=== PATIENT | female | born 1940 | race Caucasian/White ===

== ENCOUNTER 2020-11-22 08:56 | Emergency (ER) | payer MEDICARE, BC, SELFPAY ==
--- NOTE | ~2020-11-22 | CT_ITS ---
EXAMINATION: CT ABDOMEN AND PELVIS WITHOUT CONTRAST CLINICAL INFORMATION: Right flank pain. Rule out pyelonephritis COMPARISON: None TECHNIQUE: Multidetector volumetric imaging was performed from the superior aspect of the liver through the pubic symphysis. Sagittal and coronal reformatted images were obtained on the technologist's workstation. This CT examination was performed using dose optimization techniques as appropriate, variously including the following: *Automated exposure control *Adjustment of mA and/or kV according to patient size (this includes techniques or standardized protocols for targeted exams where dose is matched to indication/reason for exam; i.e. extremities or head) *Use of iterative reconstruction technique DLP: 681 mGy-cm FINDINGS: LUNG BASES: There is plate like atelectasis in the lingula. The lung bases are clear. Heart size is normal. There is aortic valve calcification. No pericardial effusion seen. LIVER, GALLBLADDER, AND BILIARY TREE: The liver is normal in size, shape, and attenuation. No focal hepatic lesion or biliary ductal dilatation is present. The gallbladder is unremarkable with no evidence of radiopaque gallstones, gallbladder wall thickening, or obvious pericholecystic inflammatory changes. PANCREAS: There is a subtle hypodensity in the head of the pancreas with minimal fat stranding, suspicious for early pancreatitis. The body and the tail of the pancreas is normal size and density. SPLEEN: Unremarkable. ADRENAL GLANDS: Unremarkable. KIDNEYS AND URETERS: The kidneys are normal in size, shape, and attenuation. No hydronephrosis, hydroureter, or calculi seen. No perinephric stranding. BLADDER: Unremarkable. GASTROINTESTINAL TRACT: There is scattered stool and gas seen throughout the colon without any significant distention. There is diffuse colonic diverticulosis without diverticulitis. The small bowel loops are normal caliber. Appendix is not well visualized. There are small lymph nodes adjacent to the terminal ileum measuring 1.1 cm. Small calcified phlebolith seen adjacent to the ascending colon. The stomach is nondistended and appears unremarkable. ABDOMINAL WALL: No significant hernia is appreciated. LYMPH NODES: Normal. VASCULAR: There is atherosclerotic calcification of abdominal aorta without aneurysmal dilatation PELVIC VISCERA: There are several scattered phleboliths in the pelvis. No free air or free fluid seen. OSSEOUS STRUCTURES: There is a right hip prosthesis with beam hardening artifact in the lower pelvis. No lytic or sclerotic process seen. There are degenerative disc changes throughout lumbar spine sparing the L5-S1 disc level. CT/CT abdomen pelvis wo con IMPRESSION: Diffuse colonic diverticulosis without diverticulitis. Mild constipation without obstruction. No radiopaque renal calculi or hydronephrosis seen. Cannot exclude pyelonephritis on this noncontrast CT exam.
--- NOTE | 2020-11-22 09:08 | ECG_ITS ---
Test Reason : R FLANK PAIN Blood Pressure : / mmHG Vent. Rate : 091 BPM Atrial Rate : 091 BPM P-R Int : 184 ms QRS Dur : 070 ms QT Int : 366 ms P-R-T Axes : 030 013 039 degrees QTc Int : 450 ms Normal sinus rhythm Normal ECG When compared with ECG of 31-MAY-2017 04:16, No significant change was found Referred By: Madhuri Osborn Electronically Signed By:ARNAUD STORY
[2020-11-22 09:09] VITALS: BP 162/87; PULSE 88; RESP 18; TEMP 36.7; O2SAT 98; BMI 28.3
--- NOTE | 2020-11-22 09:14 | ED_ITS ---
HPI - Back Pain/Injury General Chief Complaint: Abdominal Pain Stated Complaint: R FLANK PAIN FOR 1 WEEK Time Seen by Provider: 11/22/20 09:00 Source: patient Mode of arrival: ambulatory Limitations: no limitations History of Present Illness HPI Narrative: 80 yo female with past medical history of breast cancer s/p lumpectomy (not currently on oral chemo), HLD here with complaints of right mid back pain x several weeks. No radiation of pain. No numbness/tingling. No fevers/chills. No urinary symptoms/nausea/vomiting/diarrhea/rash. Using OTC APAP, voltaren cream and lidoderm patches with continued pain. MD elicited complaint: back pain Related Data Previous Rx's Medication Instructions Recorded cefpodoxime 100 mg PO BID #14 tab 11/22/20 cyclobenzaprine 10 mg PO TID PRN #10 tab 11/22/20 lidocaine [Lidoderm] 1 patch TOPICAL DAILY #15 ea 11/22/20 Allergies Allergy/AdvReac Type Severity Reaction Status Date / Time No Known Allergies Allergy Unverified 06/10/20 19:17 [No Known Allergies*] Review of Systems Review of Systems: Yes all other systems are reviewed and are negative Constitutional: Constitutional: Reports no additional constitutional complaints, Denies body ache(s), Denies chills, Denies fever(s), Denies headache(s) and Denies weakness Eyes: Eyes: Reports no additional eye complaints and Denies change in vision ENT: Reports system reviewed and no additional complaints, except as documented, Denies dizziness, Denies headache(s), Denies nasal congestion, Denies nasal discharge and Denies neck pain Cardiovascular: Cardiovascular: Reports no additional cardiovascular complaints, Denies chest pain, Denies leg edema and Denies dyspnea Respiratory: Respiratory: Reports no additional respiratory complaints, Denies cough and Denies dyspnea Gastrointestinal: Gastrointestinal: Reports no additional gastrointestinal complaints, Denies abdominal pain, Denies diarrhea, Denies nausea and Denies vomiting Genitourinary: Genitourinary: Reports no additional female genitourinary complaints and Denies urinary incontinence Musculoskeletal: Musculoskeletal: Reports no additional musculoskeletal complaints, Reports back pain, Denies arthralgias, Denies joint swelling, Denies neck pain, Denies numbness and Denies tingling Integumentary/Breasts: Skin/Breast: Reports system reviewed and no additional complaints, except as docu and Denies rash Neurologic: Reports system reviewed and no additional complaints, except as documented, Denies Abnormal speech present, Denies dizziness, Denies headache(s), Denies numbness, Denies tingling and Denies weakness PMFSH Past Medical History Attestation statement: The following information was validated with the patient. Source: old records reviewed and nursing notes reviewed Medical History (Updated 11/22/20 @ 12:41 by Madhuri Osborn NP) Breast cancer Hyperlipemia Surgical History History of right knee joint replacement Social History Social History Advance Directives: Yes Advance Directives Information Provided: No Advance Directives on File: No Physical Exam Vital Signs: Vital Signs: Last Vital Signs Temp 98.0 F 11/22/20 09:09 Pulse 67 11/22/20 13:34 Resp 16 11/22/20 13:34 BP 140/83 H 11/22/20 13:34 Pulse Ox 97 11/22/20 13:34 Body Mass Index 28.3 Const: General: cooperative, healthy appearing, comfortable and no acute distress Orientation/consciousness: patient oriented x3 Limitations: no limitations HENMT: Head: Yes normal to inspection Ears: hearing grossly normal bilaterally General nose exam: Normal external nose present Face and sinus: Yes normal facial exam Mouth: Normal oral and palatal mucosa present Throat: Yes posterior oropharynx normal Eyes: General: appearance normal, both eyes and all related structures Pupils: Equal, round and reactive pupils present Neck: Neck: Yes normal visual inspection Chest: Chest palpation & inspection: normal inspection of the chest Resp: Effort & Inspection: normal respiratory effort Auscultation: clear to auscultation bilaterally Cardio: Rate: regular rate Rhythm: regular rhythm Peripheral pulses: Peripheral pulses 2+ throughout GI: Inspection: Yes normal to inspection Palpation (GI): Soft to palpation and nontender Auscultation: normal bowel sounds : General: Yes CVA tenderness (mild/mod right ) Back/Spine/Pelvis: Back: CVA tenderness (mild/mod right ) Thoracic/Lumbar Spine: thoracic and lumbar spine normal to inspection Skin: General skin exam: no rashes or lesions noted Neuro: General: patient oriented x3, no focal motor deficits and normal sensation to monofilament Cranial nerves: Yes Equal, round and reactive pupils present Cognition (Neuro): normal cognition Speech: No Abnormal speech present Gait exam (Neuro): Normal gait present Motor exam (neuro): 5/5 motor strength present throughout Extrem: General: Yes normal to inspection Course Course Course Narrative: 80 yo female with past medical history of breast cancer s/p lumpectomy, HLD here with right mid back pain x several weeks. On exam has right CVAT and RUQ abdominal pain. Will need labs, UA, EKG, imaging, provide analgesia. 1250-labs are unremarkable including renal function and LFTs. UA is consistent with UTI. EKG and troponin are negative. CT shows no findings of renal colic o r pyelonephritis. Patient is feeling improved after receiving some analgesia. Will treat with antibiotics for UTI. I discussed with the patient she may have early pyelonephritis however less likely with no leukocytosis, no fever, no evidence of pyelonephritis on CT. May also have lumbar strain. We discussed supportive care at home in addition to the antibiotics. Reviewed following up with primary care doctor in 48 hours if no improvement in symptoms. Reviewed worrisome signs and symptoms of when to return to the emergency department. Comfortable discharge home. MDM - Back Pain/Injury MDM Narrative Medical decision making narrative: ACS, pe, pyelo/renal colic, lumbar strain, acute ernie Less likely ACS with symptoms for greater than 2 weeks, atypical in nature, negative troponin and EKG with no ischemic changes. Less likely PE with no tachycardia, no hypoxia or complaints of shortness of breath or chest pain and no clinical findings of a DVT. Less likely acute ernie with NO RUQ abdominal pain, CT not concerning for same and normal LFTs Medical Records Attestation: I reviewed the patient's medical records. Lab Data Attestation: I reviewed the patient's lab results. Result diagrams: 11/22/20 09:45 11/22/20 09:45 Labs: Lab Results 11/22/20 11/22/20 11/22/20 Range/Units 09:45 09:45 09:45 WBC 6.2 (4.8-10.8) X10*3/uL RBC 5.28 (4.20-5.50) X10*6/uL Hgb 14.8 (12.0-16.0) g/dl Hct 47.3 H (37-47) % MCV 89.6 (80-98) fL MCH 28.0 (27.0-33.0) pg MCHC 31.3 (31.0-35.0) g/dl RDW 15.5 (11.0-16.0) % Plt Count 239 (160-400) X10*3/uL MPV 10.8 (9.4-12.3) fL Immature Gran % (Auto) 0.3 (0.0-0.4) % Neut % (Auto) 73.9 H (45-73) % Lymph % (Auto) 17.8 L (20-40) % [place]ccre[place] % (Auto) 5.8 (2-11) % Eos % (Auto) 1.6 (0-4) % Baso % (Auto) 0.6 (0-2) % Lymph # (Auto) 1.1 L (1.2-4.9) X10*3/uL [place] # (Auto) 0.4 (0.1-1.2) X10*3/uL Eos # (Auto) 0.1 (0.0-0.4) X10*3/uL Baso # (Auto) 0.0 (0.0-0.2) X10*3/uL Abs Immat Gran (auto) 0.02 (0.00-0.03) X10*3/uL Absolute Neuts (auto) 4.6 (2.0-8.3) X10*3/uL Absolute Nucleated RBC 0.000 (0.0-0.012) X10*3/uL Nucleated RBC % (auto) 0.0 (0.0-0.2) /100WBC PT (10.8-13.0) SEC INR (0.9-1.1) Sodium 143 (135-145) mmol/L Potassium 4.8 (3.3-5.1) mmol/L Chloride 105 (96-108) mmol/L Carbon Dioxide 29 (22-29) mmol/L Anion Gap 14 (12-20) BUN 24 H (9-16) mg/dL Creatinine 0.96 (0.5-1.4) mg/dL Estim Creat Clear Calc 43.1 Estimated GFR 56 Random Glucose 105 (60-115) mg/dL Calcium 9.6 (8.4-10.2) mg/dL Magnesium 2.2 (1.6-2.6) mg/dL Total Bilirubin 0.6 (0.0-1.0) mg/dL Direct Bilirubin 0.2 (0.0-0.5) mg/dL AST 23 (5-31) U/L ALT 25 (0-31) U/L Alkaline Phosphatase 84 (39-117) U/L Troponin I High Sens 3.5 (<3.5-17.0) ng/L Total Protein 7.3 (6.5-8.0) g/dL Albumin 4.6 (3.5-5.0) g/dL Urine Color Urine Appearance Urine pH (5.0-8.0) Ur Specific [place] (1.005-1.025) Urine Protein (NEG-TRACE) MG/DL Urine Glucose (UA) (NEG) MG/DL Urine Ketones (NEG) MG/DL Urine Blood (NEG) Urine Nitrite (NEG) Ur Leukocyte Esterase (NEG) Urine RBC (0) /HPF Urine WBC (0-4) /HPF Ur Squamous Epith Cells /LPF Urine Bacteria /LPF 11/22/20 11/22/20 Range/Units 09:45 09:45 WBC (4.8-10.8) X10*3/uL RBC (4.20-5.50) X10*6/uL Hgb (12.0-16.0) g/dl Hct (37-47) % MCV (80-98) fL MCH (27.0-33.0) pg MCHC (31.0-35.0) g/dl RDW (11.0-16.0) % Plt Count (160-400) X10*3/uL MPV (9.4-12.3) fL Immature Gran % (Auto) (0.0-0.4) % Neut % (Auto) (45-73) % Lymph % (Auto) (20-40) % [place] % (Auto) (2-11) % Eos % (Auto) (0-4) % Baso % (Auto) (0-2) % Lymph # (Auto) (1.2-4.9) X10*3/uL [place] # (Auto) (0.1-1.2) X10*3/uL Eos # (Auto) (0.0-0.4) X10*3/uL Baso # (Auto) (0.0-0.2) X10*3/uL Abs Immat Gran (auto) (0.00-0.03) X10*3/uL Absolute Neuts (auto) (2.0-8.3) X10*3/uL Absolute Nucleated RBC (0.0-0.012) X10*3/uL Nucleated RBC % (auto) (0.0-0.2) /100WBC PT 11.6 (10.8-13.0) SEC INR 1.0 (0.9-1.1) Sodium (135-145) mmol/L Potassium (3.3-5.1) mmol/L Chloride (96-108) mmol/L Carbon Dioxide (22-29) mmol/L Anion Gap (12-20) BUN (9-16) mg/dL Creatinine (0.5-1.4) mg/dL Estim Creat Clear Calc Estimated GFR Random Glucose (60-115) mg/dL Calcium (8.4-10.2) mg/dL Magnesium (1.6-2.6) mg/dL Total Bilirubin (0.0-1.0) mg/dL Direct Bilirubin (0.0-0.5) mg/dL AST (5-31) U/L ALT (0-31) U/L Alkaline Phosphatase (39-117) U/L Troponin I High Sens (<3.5-17.0) ng/L Total Protein (6.5-8.0) g/dL Albumin (3.5-5.0) g/dL Urine Color YELLOW Urine Appearance HAZY Urine pH 7.5 (5.0-8.0) Ur Specific [place] 1.020 (1.005-1.025) Urine Protein NEG (NEG-TRACE) MG/DL Urine Glucose (UA) NEG (NEG) MG/DL Urine Ketones NEG (NEG) MG/DL Urine Blood NEG (NEG) Urine Nitrite NEG (NEG) Ur Leukocyte Esterase 2+ H (NEG) Urine RBC 0-2 (0) /HPF Urine WBC 15-29 H (0-4) /HPF Ur Squamous Epith Cells 3+ /LPF Urine Bacteria TRACE /LPF Imaging Data CT scan - abdomen: Attestation: I personally reviewed and interpreted this imaging study as follows: Radiologist's impression: EXAMINATION: CT ABDOMEN AND PELVIS WITHOUT CONTRAST CLINICAL INFORMATION: Right flank pain. Rule out pyelonephritis COMPARISON: None TECHNIQUE: Multidetector volumetric imaging was performed from the superior aspect of the liver through the pubic symphysis. Sagittal and coronal reformatted images were obtained on the technologist's workstation. This CT examination was performed using dose optimization techniques as appropriate, variously including the following: *Automated exposure control *Adjustment of mA and/or kV according to patient size (this includes techniques or standardized protocols for targeted exams where dose is matched to indication/reason for exam; i.e. extremities or head) *Use of iterative reconstruction technique DLP: 681 mGy-cm FINDINGS: LUNG BASES: There is plate like atelectasis in the lingula. The lung bases are clear. Heart size is normal. There is aortic valve calcification. No pericardial effusion seen. LIVER, GALLBLADDER, AND BILIARY TREE: The liver is normal in size, shape, and attenuation. No focal hepatic lesion or biliary ductal dilatation is present. The gallbladder is unremarkable with no evidence of radiopaque gallstones, gallbladder wall thickening, or obvious pericholecystic inflammatory changes. PANCREAS: There is a subtle hypodensity in the head of the pancreas with minimal fat stranding, suspicious for early pancreatitis. The body and the tail of the pancreas is normal size and density. SPLEEN: Unremarkable. ADRENAL GLANDS: Unremarkable. KIDNEYS AND URETERS: The kidneys are normal in size, shape, and attenuation. No hydronephrosis, hydroureter, or calculi seen. No perinephric stranding. BLADDER: Unremarkable. GASTROINTESTINAL TRACT: There is scattered stool and gas seen throughout the colon without any significant distention. There is diffuse colonic diverticulosis without diverticulitis. The small bowel loops are normal caliber. Appendix is not well visualized. There are small lymph nodes adjacent to the terminal ileum measuring 1.1 cm. Small calcified phlebolith seen adjacent to the ascending colon. The stomach is nondistended and appears unremarkable. ABDOMINAL WALL: No significant hernia is appreciated. LYMPH NODES: Normal. VASCULAR: There is atherosclerotic calcification of abdominal aorta without aneurysmal dilatation PELVIC VISCERA: There are several scattered phleboliths in the pelvis. No free air or free fluid seen. OSSEOUS STRUCTURES: There is a right hip prosthesis with beam hardening artifact in the lower pelvis. No lytic or sclerotic process seen. There are degenerative disc changes throughout lumbar spine sparing the L5-S1 disc level. CT/CT abdomen pelvis wo con IMPRESSION: Diffuse colonic diverticulosis without diverticulitis. Mild constipation without obstruction. No radiopaque renal calculi or hydronephrosis seen. Cannot exclude pyelonephritis on this noncontrast CT exam. ECG Data Attestation: I personally reviewed and interpreted this ECG as follows: Interpretation: NSR rate 91, normal pr, normal qrs, normal qt Discharge Plan Discharge Clinical Impression: Lumbar sprain UTI (urinary tract infection) Qualifiers: Urinary tract infection type: acute cystitis Hematuria presence: without hematuria Qualified Code(s): N30.00 - Acute cystitis without hematuria Patient Disposition: Home, Self-Care Instructions: Low Back Strain (ED), Urinary Tract Infection in Older Adults (ED) Additional Instructions: Heat to the area with the patch is not in place Increase fluids, rest If no improvement in symptoms by Sunday follow-up with your primary care doctor Prescriptions: New lidocaine [Lidoderm] 5 % adhesive patch,medicated 1 patch topical DAILY Qty: 15 RF: 0 cyclobenzaprine 10 mg tablet 10 mg PO TID PRN (Reason: muscle spasm) Qty: 10 RF: 0 cefpodoxime 100 mg tablet 100 mg PO BID Qty: 14 RF: 0 Referrals: Simeon Solitario DO, MD [Primary Care Provider] - 2 days (if no better) Interventions: ED Discharge Assessment Last Done: 11/22/20 13:35 Discharge Date/Time: 11/22/20 13:52
[2020-11-22] MEDS: ondansetron HCL 4 MG/2 ML VIAL IVPUSH (09:42)
[2020-11-22 09:54] LABS: MANUAL DIFF FLAG NO
[2020-11-22 09:56] LABS: Basophils Percent Auto 0.6 % (0-2); Eosinophils Absolute Auto 0.1 X10*3/uL (0.0-0.4); Eosinophils Percent Auto 1.6 % (0-4); Hematocrit 47.3 % (37-47); Hemoglobin 14.8 g/dl (12.0-16.0); Imm Gran Abs Auto 0.02 X10*3/uL (0.00-0.03); Imm Gran Pct Auto 0.3 % (0.0-0.4); Lymphocytes Absolute Auto 1.1 X10*3/uL (1.2-4.9); Lymphocytes Percent Auto 17.8 % (20-40); Mean Corpuscular HGB Conc 31.3 g/dl (31.0-35.0); Mean Corpuscular Volume 89.6 fL (80-98); Mean Platelet Volume 10.8 fL (9.4-12.3); Monocytes Absolute Auto 0.4 X10*3/uL (0.1-1.2); Monocytes Percent Auto 5.8 % (2-11); Neutrophils Absolute Auto 4.6 X10*3/uL (2.0-8.3); Neutrophils Percent Auto 73.9 % (45-73); Platelet Count 239 X10*3/uL (160-400); Red Blood Count 5.28 X10*6/uL (4.20-5.50); Red Cell Distribution Width 15.5 % (11.0-16.0); White Blood Count 6.2 X10*3/uL (4.8-10.8)
[2020-11-22 10:00] LABS: Glucose Urine UA NEG (NEG); Leukocyte Esterase Urine 2+ (NEG); Nitrite Urine NEG (NEG); PH 7.5 (5.0-8.0); UACC Culture Trigger YES; Urine Blood NEG (NEG); Urine Ketones NEG (NEG); Urine Protein NEG (NEG-TRACE)
[2020-11-22 10:03] LABS: Appearance Urine HAZY; Color Urine YELLOW
[2020-11-22 10:04] LABS: Prothrombin Time 11.6 SEC (10.8-13.0)
[2020-11-22 10:09] LABS: Bacteria Urine TRACE /LPF; RBC Urine 0-2 /HPF (0); Squamous Epithelial Cell Urine 3+ /LPF
[2020-11-22] MEDS: Lidocaine 4 % Patch ADH..PATCH 1 PATCH TRANSDERMA (10:27)
[2020-11-22] MEDS: Cyclobenzaprine HCl 10 MG TABLET PO (10:27)
[2020-11-22] MEDS: Acetaminophen 325 MG TABLET 650 MG PO (10:27)
[2020-11-22 10:42] LABS: Troponin-I High Sensitivity 3.5 ng/L (<3.5-17.0)
[2020-11-22 10:53] LABS: Alanine Aminotransferase 25 U/L (0-31); Albumin Level 4.6 g/dL (3.5-5.0); Alkaline Phosphatase 84 U/L (39-117); Anion Gap 14 (12-20); Aspartate Amino Transferase 23 U/L (5-31); Bilirubin Direct 0.2 mg/dL (0.0-0.5); Bilirubin Total 0.6 mg/dL (0.0-1.0); Blood Urea Nitrogen 24 mg/dL (9-16); Calcium 9.6 mg/dL (8.4-10.2); Carbon Dioxide 29 mmol/L (22-29); Chloride 105 mmol/L (96-108); Creatinine Clr Calc Pharmacy 43.1; Estimated Glomerular Filt Rate 56; Glucose Random 105 mg/dL (60-115); Magnesium 2.2 mg/dL (1.6-2.6); Potassium 4.8 mmol/L (3.3-5.1); Sodium 143 mmol/L (135-145); Total Protein 7.3 g/dL (6.5-8.0)
[2020-11-22] MEDS: Morphine Sulfate 2 MG/ML CARTRIDGE IVPUSH (11:56)
[2020-11-22 13:34] VITALS: BP 140/83; PULSE 67; RESP 16; O2SAT 97
== END 2020-11-22 13:52 | disposition home or self-care (01) ==
PROVIDERS: Nurse Practitioner Family; Emergency Provider Emergency Medicine; PCP Internal Medicine
DX: N30.00 Acute cystitis without hematuria (principal); S39.012A Strain of muscle, fascia and tendon of lower back, initial encounter; X58.XXXA Exposure to other specified factors, initial encounter; R10.9 Unspecified abdominal pain; E78.5 Hyperlipidemia, unspecified; Y93.9 Activity, unspecified; Y92.9 Unspecified place or not applicable; Y99.9 Unspecified external cause status; Z85.3 Personal history of malignant neoplasm of breast
CPT/HCPCS: 36415; 74176; 80048; 80076; 81001; 81003; 83735; 84484; 85025; 85610; 87086; 93005; 96374; 96375; 96376; 99283; 99284; J2270; J2405

== ENCOUNTER 2023-05-17 09:00 | Outpatient (REF) | payer MEDICARE, BC, SELFPAY ==
--- NOTE | ~2023-05-17 | XR_ITS ---
EXAMINATION: XR HUMERUS, LEFT CLINICAL INFORMATION: Left humeral fracture. COMPARISON: None available. TECHNIQUE: AP and lateral views of the left humerus. FINDINGS: There is bony demineralization. There is subluxation of the left glenohumeral joint. A transverse fracture is seen of the surgical neck of the left humerus. There is a displaced fracture fragment of the greater tuberosity of the proximal left humerus. No staci dislocation is seen. The acromioclavicular and coracoclavicular intervals are normal. There is mild osteoarthritic change of the acromioclavicular joint. There is no focal soft tissue swelling, gas or foreign body. Left axillary surgical clips are noted. XR/XR humerus LT IMPRESSION: Displaced fractures are noted of the surgical neck and greater tuberosity of the proximal left humerus (Neer three-part fracture).
== END 2023-05-17 09:01 | disposition home or self-care (01) ==
LOC: HO.HOSX 09:00
PROVIDERS: PCP Internal Medicine; Visit Provider Orthopaedic Surgery
DX: S42.222A 2-part displaced fracture of surgical neck of left humerus, initial encounter for closed fracture (principal); X58.XXXA Exposure to other specified factors, initial encounter; Y93.9 Activity, unspecified; Y92.9 Unspecified place or not applicable; Y99.9 Unspecified external cause status
CPT/HCPCS: 73060; 99202

== ENCOUNTER 2023-05-17 09:00 | Outpatient (AMB) | payer MEDICARE, BC, SELFPAY ==
--- NOTE | 2023-05-17 09:13 | MHC.OFFVIS ---
Intake Intake Visit Reasons: New Pt - Left Humerus Fx DOI 05/09/23 Intake Note: Zainab is an 82 year old left hand dominant female who presents today as a new patient for evaluation of her left humerus fx DOI 05/09/23. Patient reports that she was Leaving [employer] and when she went to turn and her sneaker got caught on the ground and she fell landing on hte left side. She reports diffuculty with daily activity. She is taking advil for her pain which helps. She has been wearing her sling at all times. Denies numbness and tingling. Allergies No Known Allergies [No Known Allergies*] Allergy (Unverified 06/10/20 19:17) HPI New Pt - Left Humerus Fx DOI 05/09/23 HPI Details Zainab is an 82 year old left hand dominant woman who presents with a left humerus fracture after a fall, DOI: 05/09/23. She says she was leaving [employer] when she tripped and landed on her left side. She was seen at [facility], and has been wearing a sling since her injury. She complains of pain with daily activity and use of her LUE. She has been taking Advil since her injury, with some relief. She is concerned if she will need surgery to correct this. 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) Review of Systems Const All systems reviewed & are unremarkable except as noted in HPI and below Physical Exam Const General: no acute distress, alert and awake Orientation/consciousness: patient oriented x3 HEENT Head: Yes normocephalic and Yes atraumatic Eyes EOM: EOMs intact bilaterally Resp Effort & Inspection: normal respiratory effort and able to speak in complete sentences Cardio Jugular venous distension: no JVD Skin General skin exam: turgor normal Rashes: no rashes Neuro General: patient oriented x3 Extrem Other: Left Shoulder: Sensation intact over lateral deltoid Moving wrist comfortably Psych Appearance: grossly normal Affect: normal affect Attitude: cooperative Results Reviewed Results Reviewed: I personally reviewed relevant radiographs. Displaced fractures are noted of the surgical neck and greater tuberosity of the proximal left humerus (Neer three-part fracture). Assessment & Plan Assessment & Plan (1) Left humeral fracture: Code(s): S42.302A - Unspecified fracture of shaft of humerus, left arm, initial encounter for closed fracture Plan: This is an 82 year old woman with a left humerus fracture after a fall, DOI: 05/09/23. She has been wearing a sling since her DOI. She has pain with use of her shoulder. I discussed her diagnosis and treatment options. I think she may benefit from a rTSA, but recommend we manage this non-operatively at this time. I ordered PT and she will discontinue her sling at this time. She will follow up in 4 weeks. Plan Scribed for Larry Wood MD by Gagandeep Huang, biomedical engineering director, on 05/17/23 at 9:50 AM, EST. Orders: Orders XR humerus LT 05/17/23 S42.302A - Unspecified fracture of shaft of humerus, left arm, initial encounter for closed fracture PT Evaluation and Treatment 05/17/23 S42.302A - Unspecified fracture of shaft of humerus, left arm, initial encounter for closed fracture Coding Level of Care Code New Pt Level 4 (33946) Diagnoses Left humeral fracture S42.302A
== END 2023-05-17 10:04 | disposition home or self-care (01) ==
PROVIDERS: PCP Internal Medicine; Visit Provider Orthopaedic Surgery
DX: S42.232A 3-part fracture of surgical neck of left humerus, initial encounter for closed fracture (principal); S42.252A Displaced fracture of greater tuberosity of left humerus, initial encounter for closed fracture
CPT/HCPCS: 99204

== ENCOUNTER 2023-06-21 08:30 | Outpatient (REF) | payer MEDICARE, BC, SELFPAY ==
--- NOTE | ~2023-06-21 | XR_ITS ---
EXAMINATION: XR SHOULDER, LEFT CLINICAL INFORMATION: Pain. COMPARISON: Radiographs dated 05/17/2023. TECHNIQUE: AP external rotation, Grashey, scapular Y, and axillary views of the left shoulder. FINDINGS: There is bony demineralization. There are stable displaced fracture lines of the surgical neck and greater tuberosity proximal left humerus. There is now good callus formation. The glenohumeral joint is subluxed, without staci dislocation. There is widening of the rotator cuff interval. No soft tissue gas or foreign body is seen. XR/XR shoulder LT min 2V IMPRESSION: There is stable alignment of a Neer 3-part fracture of the proximal left humerus. There is now good callus formation.
== END 2023-06-21 08:31 | disposition home or self-care (01) ==
LOC: HO.HOSX 08:30
PROVIDERS: Visit Provider Orthopaedic Surgery
DX: S42.302A Unspecified fracture of shaft of humerus, left arm, initial encounter for closed fracture (principal)
CPT/HCPCS: 73030; 99212

== ENCOUNTER 2023-06-21 09:06 | Outpatient (AMB) | payer MEDICARE, BC, SELFPAY ==
--- NOTE | 2023-06-21 08:42 | MHC.OFFVIS ---
Intake Intake Visit Reasons: ov- Left Humerus Fx DOI 05/09/23 Intake Note: Zainab is an 82 year old left hand dominant female who presents for a follow up of left humerus fx DOI 05/09/23. At her last appointment she was instructed to discontinue sling, a Reverse TSA was also discussed but not warranted at this time. She has been doing home therapy, and will be starting outpatient theray on sunday. She has very low pain, denies numbness and tingling. She has been sleeping in a recliner which allows her to rest very comfortably. Allergies No Known Allergies [No Known Allergies*] Allergy (Unverified 06/10/20 19:17) HPI ov- Left Humerus Fx DOI 05/09/23 HPI Details Zainab is an 82 year old woman who returns to discuss her left humerus fracture after a fall, DOI: 05/09/23. She discontinued her sling following her last appointment. She says her pain and ROM have improved with her at-home exercises, and she is supposed to start formal PT in the next week. She says she continues to wear her sling when out of the house in crowds as she is afraid someone will bump into me , but she does not wear her sling at home. 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 Review of Systems Const All systems reviewed & are unremarkable except as noted in HPI and below Physical Exam Const General: no acute distress, alert and awake Orientation/consciousness: patient oriented x3 HEENT Head: Yes normocephalic and Yes atraumatic Eyes EOM: EOMs intact bilaterally Resp Effort & Inspection: normal respiratory effort and able to speak in complete sentences Cardio Jugular venous distension: no JVD Skin General skin exam: turgor normal Rashes: no rashes Neuro General: patient oriented x3 Extrem Other: Left Shoulder: Sensation intact over lateral deltoid Moving wrist comfortably Psych Appearance: grossly normal Affect: normal affect Attitude: cooperative Results Reviewed Results Reviewed: I personally reviewed relevant radiographs. Healing left proximal humerus fracture Assessment & Plan Assessment & Plan (1) Left humeral fracture: Code(s): S42.302A - Unspecified fracture of shaft of humerus, left arm, initial encounter for closed fracture Plan: This is an 82 year old woman with a left humerus fracture after a fall, DOI: 05/09/23. Her pain has improved and she has somewhat improved her ROM. She has been performing exercises at-home and is to begin formal PT in the next week. I recommend she work on ROM and continue activity as tolerated. She has no limitations on her ROM at this time, but she should limit any heavy or overhead lifting activities. She will follow up in 2 months. Plan Scribed for Larry Wood MD by Gagandeep Huang, medical unit secretary, on 06/21/23 at 9:35 AM, EST. Orders: Orders XR shoulder LT min 2V Today M25.519 - Pain in unspecified shoulder Coding Level of Care Code Est Pt Level 3 (96230) Diagnoses Left humeral fracture S42.302A
== END 2023-06-21 09:40 | disposition home or self-care (01) ==
PROVIDERS: PCP Internal Medicine; Visit Provider Orthopaedic Surgery
DX: S42.302A Unspecified fracture of shaft of humerus, left arm, initial encounter for closed fracture (principal)
CPT/HCPCS: 99213

== ENCOUNTER 2023-08-23 09:04 | Outpatient (AMB) | payer MEDICARE, BC, SELFPAY ==
--- NOTE | 2023-08-23 09:24 | A.OFFVIS_ITS ---
Intake Vital Signs 08/23/23 09:27 Height 5 ft 3 in Weight 150 lb BMI 26.6 Intake Visit Reasons: OV-Left Humerus Fx DOI 05/09/23-w/xray Intake Note: Zainab is an 82 year old left hand dominant female who presents for a follow up of left humerus fx DOI 05/09/23. Patient reports that she is doing ok, she feels that the healing process has plateaued. She is not having pain but is aggravated by her limited ROM. Allergies No Known Allergies [No Known Allergies*] Allergy (Unverified 08/23/23 09:28) HPI OV-Left Humerus Fx DOI 05/09/23-w/xray HPI Details Zainab is an 82 year old woman who returns to discuss her left humerus fracture after a fall, DOI: 05/09/23. She says she is doing well in regards to pain, but she continues to be frustrated by her limited shoulder ROM. She says her shoulder feels tight when she tries to move it. She has been attending PT and trying to use her arm for daily lightweight activities. She is very happy with her current PT and says she has ~1 month left. 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 Review of Systems Const All systems reviewed & are unremarkable except as noted in HPI and below Physical Exam Vital Signs: BMI result Body Mass Index 26.6 Const General: no acute distress, alert and awake Orientation/consciousness: patient oriented x3 HEENT Head: Yes normocephalic and Yes atraumatic Eyes EOM: EOMs intact bilaterally Resp Effort & Inspection: normal respiratory effort and able to speak in complete sentences Cardio Jugular venous distension: no JVD Skin General skin exam: turgor normal Rashes: no rashes Neuro General: patient oriented x3 Extrem Other: Left Shoulder: She cannot get her left hand to the back for head without forward flexion of her neck. She has no external rotation when controlling for abduction. She can abduct with scapular recruitment to about 30 degrees. She can forward flex to 50 degrees. Psych Appearance: grossly normal Affect: normal affect Attitude: cooperative Results Reviewed Results Reviewed: I personally reviewed relevant radiographs. Healing left proximal humerus fracture. There is a head split that is healing but there is obvious malalignment and joint incongruity. Assessment & Plan Assessment & Plan (1) Left humeral fracture: Code(s): S42.302A - Unspecified fracture of shaft of humerus, left arm, initial encounter for closed fracture Plan: This is an 82 year old woman with a left humerus fracture after a fall, DOI: 05/09/23. She no longer has any pain and is not limited in her normal function, but she continues to be frustrated by her limited ROM. She has been working with PT and performing at-home exercises. I recommend she continue with PT, working on ROM, and activity as tolerated. She should continue to limit any heavy or overhead lifting activities. She will follow up in 3 months, after she returns from her trip to [place] in October. (2) Proximal humerus fracture: Code(s): S42.209A - Unspecified fracture of upper end of unspecified humerus, initial encounter for closed fracture Plan: This is an 82 year old woman with a left humerus fracture after a fall, DOI: 05/09/23. She no longer has any pain and is not limited in her normal function, but she continues to be frustrated by her limited ROM. She has been working with PT and performing at-home exercises. I recommend she continue with PT, working on ROM, and activity as tolerated. She should continue to limit any heavy or overhead lifting activities. She will follow up in 3 months, after she returns from [place]. We discussed surgical intervention but she does not want that at this time. I do think shoulder arthroplasty would benefit her as this is her d ominant hand and she is active and healthy but she understands this and does not want pursue that at this time. Plan Scribed for Larry Wood MD by Gagandeep Huang, expert medical writer, on 08/23/23 at 9:30 AM, EST. Orders: Orders XR shoulder LT min 2V Today M25.519 - Pain in unspecified shoulder Coding Level of Care Code Est Pt Level 4 (36612) Diagnoses Left humeral fracture S42.302A Proximal humerus fracture S42.209A
[2023-08-23 09:27] VITALS: BMI 26.6
== END 2023-08-23 10:16 | disposition home or self-care (01) ==
PROVIDERS: PCP Internal Medicine; Visit Provider Orthopaedic Surgery
DX: S42.302D Unspecified fracture of shaft of humerus, left arm, subsequent encounter for fracture with routine healing (principal); S42.202D Unspecified fracture of upper end of left humerus, subsequent encounter for fracture with routine healing
CPT/HCPCS: 99214

== ENCOUNTER 2023-08-23 09:04 | Outpatient (REF) | payer MEDICARE, BC, SELFPAY ==
--- NOTE | ~2023-08-23 | XR_ITS ---
EXAMINATION: XR SHOULDER, LEFT CLINICAL INFORMATION: M25.519 - Pain in unspecified shoulder. COMPARISON: Prior x-ray May 2023. TECHNIQUE: AP external rotation, Grashey, scapular Y, and axillary views of the left shoulder. FINDINGS: Old proximal humerus fracture redemonstrated. Persistent lucency along the fracture line. There is at least some osseous bridging noted along the lateral aspect of the fracture unchanged compared to prior. The humeral head is inferiorly subluxed at the level of the glenohumeral joint unchanged. Acromioclavicular joint normal. Surgical clips overlying the partially visualized left chest. XR/XR shoulder LT min 2V IMPRESSION: 1. Old proximal humerus fracture unchanged compared with prior. 2. Inferior subluxation of the humeral head at the level of the glenohumeral joint unchanged.
== END 2023-08-23 09:05 | disposition home or self-care (01) ==
LOC: HO.HOSX 09:04
PROVIDERS: PCP Internal Medicine; Visit Provider Orthopaedic Surgery
DX: S42.302A Unspecified fracture of shaft of humerus, left arm, initial encounter for closed fracture (principal); S42.202A Unspecified fracture of upper end of left humerus, initial encounter for closed fracture
CPT/HCPCS: 73030; 99212

== ENCOUNTER 2023-10-02 08:23 | Outpatient (REF) | payer MEDICARE, BC, SELFPAY | END 2023-10-02 08:24 | disposition home or self-care (01) | LOC: HO.HOSX 08:23 | PROVIDERS: Visit Provider Physician Assistant | DX: Z13.89 Encounter for screening for other disorder (principal) ==

== ENCOUNTER 2023-10-03 14:00 | Outpatient (AMB) | payer MEDICARE, BC, SELFPAY ==
--- NOTE | 2023-10-03 14:05 | MHC.OFFVIS ---
Intake Vital Signs 10/03/23 14:34 Height 5 ft 3 in Weight 150 lb BMI 26.6 Intake Visit Reasons: New Prob - RT Shoulder Dislocation, DOI 09/20/23 Intake Note: Zainab garcia 82 year old female presents today for an ER follow up of right shoulder, DOI 09/20/23. Patient reports that she fell when she was throwing trash away under her bathroom sink. Currently has mild pain tenderness in her bicep. Denies numbness or tingling. states area feels cold but not to the touch. Finds ibuprofen and oxycodone . Allergies No Known Allergies [No Known Allergies*] Allergy (Unverified 08/23/23 09:28) HPI New Prob - RT Shoulder Dislocation, DOI 09/20/23 HPI Details 82-year-old left hand dominant female who presents to the office today for an ER follow-up of right shoulder dislocation s/p fall when she was throwing trash away under her bathroom sink, 09/20/23. She was seen at [facility] ED for her dislocation where her shoulder was put back into place. She currently states she has mild pain and tenderness in her bicep region. She also c/o limited ROM in her shoulder and finds difficulty to put on clothes or shower. She also reports her shoulder feels cold but not to the touch. She denies any numbness or tingling. She finds relief with ibuprofen and oxycodone. 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 Social History (Updated 10/03/23 @ 14:34 by ALVARO Gallagher) Patient Tobacco Use Status: Never used Tobacco Current occupational status: retired Review of Systems Const All systems reviewed & are unremarkable except as noted in HPI and below Physical Exam Vital Signs: BMI result Body Mass Index 26.6 Const General: cooperative and no acute distress Orientation/consciousness: patient oriented x3 Resp Effort & Inspection: normal respiratory effort and able to speak in complete sentences Cardio Peripheral pulses: Peripheral pulses 2+ throughout Neuro General: patient oriented x3 Extrem Other: Right shoulder: Normal to inspection. Tenderness over the proximal humerus with some mild ecchymosis along the bicep region. She has very limited ROM due to discomfort. NVI. Office Procedures Fracture Care Fracture Billing Code: Fracture Billing Code Results Reviewed Results Reviewed: X-rays of the right shoulder obtained in the office today show no acute dislocation. She does have some AC joint arthritis. There are some subtle loosencies on axillary view which may be significant for a non-displaced proximal humerus fracture. Assessment & Plan Assessment & Plan (1) Dislocation of right shoulder joint: Code(s): S43.004A - Unspecified dislocation of right shoulder joint, initial encounter Qualifiers: Encounter type: initial encounter Qualified Code(s): S43.004A - Unspecified dislocation of right shoulder joint, initial encounter (2) Rotator cuff tear, right: Code(s): M75.101 - Unspecified rotator cuff tear or rupture of right shoulder, not specified as traumatic Qualifiers: Rotator cuff tear extent: unspecified tear extent Rotator cuff tear trauma status: traumatic Encounter type: initial encounter Qualified Code(s): S46.011A - Strain of muscle(s) and tendon(s) of the rotator cuff of right shoulder, initial encounter Plan I cannot rule out a subtle, non displaced proximal humerus fracture At this time, she will work with physical therapy to restore her ROM and work on periscapular stabilization. She does have an appointment on December [address] Wood for her left shoulder at that time she should also follow-up for her right shoulder for routine follow-up, new x-rays and ROM check since she will be traveling in October, this will make it easier for her. She is content with this plan. Orders: Orders XR shoulder RT min 2V Today M25.511 - Pain in right shoulder PT Evaluation and Treatment Today M75.101 - Unspecified rotator cuff tear or rupture of right shoulder, not specified as traumatic, S43.004A - Unspecified dislocation of right shoulder joint, initial encounter Patient Instructions: Scribed for Mu Rachel PA-C, by Davin Ma certified court/medical interpreter, on 10/03/2023 at 2:15 PM EST. Ross, Mu Rachel PA-C, have personally reviewed and agree with the information entered by the scribe. Coding Level of Care Code Est Pt Level 3 (26114) Diagnoses Dislocation of right shoulder joint, initial encounter S43.004A Encounter type: initial encounter Traumatic tear of right rotator cuff, unspecified tear extent, initial encounter S46.011A Rotator cuff tear extent: unspecified tear extent Rotator cuff tear trauma status: traumatic Encounter type: initial encounter CPT Codes Fracture Care - Fracture Billing Code: Fracture Billing Code ([id number])
[2023-10-03 14:34] VITALS: BMI 26.6
== END 2023-10-03 15:08 | disposition home or self-care (01) ==
PROVIDERS: PCP Internal Medicine; Visit Provider Physician Assistant
DX: S43.004A Unspecified dislocation of right shoulder joint, initial encounter (principal); S46.011A Strain of muscle(s) and tendon(s) of the rotator cuff of right shoulder, initial encounter; W19.XXXA Unspecified fall, initial encounter
CPT/HCPCS: 99213

== ENCOUNTER 2023-10-03 14:00 | Outpatient (REF) | payer MEDICARE, BC, SELFPAY ==
--- NOTE | ~2023-10-03 | XR_ITS ---
EXAMINATION: XR SHOULDER, RIGHT CLINICAL INFORMATION: Right shoulder pain. COMPARISON: None available. TECHNIQUE: Three views of the right shoulder. FINDINGS: Some mild degenerative changes are noted in the right shoulder. No fracture. Glenohumeral and acromioclavicular alignment is anatomic. No abnormal soft tissue calcifications. XR/XR shoulder RT min 2V IMPRESSION: Mild degenerative changes in the right shoulder.
== END 2023-10-03 14:01 | disposition home or self-care (01) ==
LOC: HO.HOSX 14:00
PROVIDERS: PCP Internal Medicine; Visit Provider Physician Assistant
DX: M25.511 Pain in right shoulder (principal); S43.004A Unspecified dislocation of right shoulder joint, initial encounter; S46.011A Strain of muscle(s) and tendon(s) of the rotator cuff of right shoulder, initial encounter; W01.0XXA Fall on same level from slipping, tripping and stumbling without subsequent striking against object, initial encounter; Y93.E9 Activity, other interior property and clothing maintenance; Y92.9 Unspecified place or not applicable; Y99.9 Unspecified external cause status
CPT/HCPCS: 73030; 99212

== ENCOUNTER 2023-12-10 07:33 | Outpatient (REF) | payer MEDICARE, BC, SELFPAY ==
--- NOTE | ~2023-12-10 | XR_ITS ---
EXAMINATION: X-RAY LEFT SHOULDER AND LEFT HUMERUS CLINICAL INFORMATION: Pain. COMPARISON: Radiograph left shoulder 08/23/2023. Radiograph left humerus 05/17/2023. TECHNIQUE: 3 views of the left shoulder and 2 views of the left humerus. FINDINGS: Chronic proximal humeral fracture with persistent lucency along the fracture line, although with some osseous bridging noted along the lateral aspect of the fracture and callus formation, similar to prior. The humeral head is inferior subluxated at the level of the glenohumeral joint, unchanged. Mild multifocal degenerative arthrosis, unchanged. Redemonstration of surgical clips overlying the left lower chest. No acute abnormality compared to 08/23/2023 or 05/17/2023. XR/XR humerus LT IMPRESSION: Similar appearance of chronic proximal left humeral fracture. Stable inferior subluxation of the humeral head.
--- NOTE | ~2023-12-10 | XR_ITS ---
EXAMINATION: X-RAY LEFT SHOULDER AND LEFT HUMERUS CLINICAL INFORMATION: Pain. COMPARISON: Radiograph left shoulder 08/23/2023. Radiograph left humerus 05/17/2023. TECHNIQUE: 3 views of the left shoulder and 2 views of the left humerus. FINDINGS: Chronic proximal humeral fracture with persistent lucency along the fracture line, although with some osseous bridging noted along the lateral aspect of the fracture and callus formation, similar to prior. The humeral head is inferior subluxated at the level of the glenohumeral joint, unchanged. Mild multifocal degenerative arthrosis, unchanged. Redemonstration of surgical clips overlying the left lower chest. No acute abnormality compared to 08/23/2023 or 05/17/2023. XR/XR shoulder LT min 2V IMPRESSION: Similar appearance of chronic proximal left humeral fracture. Stable inferior subluxation of the humeral head.
== END 2023-12-10 07:34 | disposition home or self-care (01) ==
LOC: HO.HOSX 07:33
PROVIDERS: Visit Provider Orthopaedic Surgery
DX: M12.811 Other specific arthropathies, not elsewhere classified, right shoulder (principal); S42.302D Unspecified fracture of shaft of humerus, left arm, subsequent encounter for fracture with routine healing; X58.XXXD Exposure to other specified factors, subsequent encounter
CPT/HCPCS: 73030; 73060; 99212

== ENCOUNTER 2023-12-10 09:52 | Outpatient (AMB) | payer MEDICARE, BC, SELFPAY ==
--- NOTE | 2023-12-10 09:55 | A.OFFVIS_ITS ---
Intake Intake Visit Reasons: OV-Left Humerus Fx DOI 05/09/23-w/xray Intake Note: Zainab is an 83 year old Left hand dominant female who presents today for a follow up of her right shoulder dislocation. DOI: 09/20/24. Left Humerus Fx DOI 05/09/23. Patient reports that she is having increased pain in the right shoulder, she has a sudden increase of pain with certain movements behind the back or over the head. The left arm is doing well, she is still limited with over the head ROM but is r elatively painless. Allergies No Known Allergies [No Known Allergies*] Allergy (Unverified 12/10/23 10:17) HPI OV-Left Humerus Fx DOI 05/09/23-w/xray HPI Details Zainab is an 83 year old Left hand dominant female who presents today for a follow up of her right shoulder dislocation. DOI: 09/20/24. Left Humerus Fx DOI 05/09/23. Patient reports that she is having increased pain in the right shoulder, she has a sudden increase of pain with certain movements behind the back or over the head. She would like to be able to use at least 1 arm. She has almost no ability to abduct her right arm. The left arm is doing well, she is still limited with over the head ROM but is relatively painless. 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 Healing left proximal humerus fracture Unremarkable right shoulder radiographs Assessment & Plan Assessment & Plan (1) Rotator cuff arthropathy of right shoulder: Code(s): M12.811 - Other specific arthropathies, not elsewhere classified, right shoulder Plan: This is an active 83-year-old woman with rotator cuff arthropathy of the right shoulder. She is unable to engage in her daily activities. Her left shoulder is compromised because of a prior proximal humerus fracture and while this is healing well she does need at least 1 functional arm. She sustained a dislocation approximately 6 months ago on the right. At this point I recommend a reverse shoulder arthroplasty. I discussed this with her in detail. I discussed the risks, benefits and alternatives including, but not limited to the risk of dislocation, limited motion, need for further surgery, pain, infection, nerve injury as well as medical complications. She is active and healthy and has done well with arthroplasty in the past and I think she would benefit from this given the compromised bilateral nature of her injuries. Plan Right total shoulder arthroplasty in February. Will order CT and MRI for preoperative planning. She will meet with our Nurse Navigator, Xiao. Orders: Orders XR humerus LT Today S42.209A - Unspecified fracture of upper end of unspecified humerus, initial encounter for closed fracture, S42.302A - Unspecified fracture of shaft of humerus, left arm, initial encounter for closed fracture XR shoulder LT min 2V Today M25.519 - Pain in unspecified shoulder Coding Level of Care Code Est Pt Level 4 (73546) Diagnoses Rotator cuff arthropathy of right shoulder M12.811
== END 2023-12-10 11:57 | disposition home or self-care (01) ==
PROVIDERS: PCP Internal Medicine; Visit Provider Orthopaedic Surgery
DX: M12.811 Other specific arthropathies, not elsewhere classified, right shoulder (principal)
CPT/HCPCS: 99214

== ENCOUNTER 2024-02-19 10:04 | Outpatient (REF) | payer MEDICARE, BC, SELFPAY ==
--- NOTE | ~2024-02-19 | CT_ITS ---
EXAMINATION: CT SHOULDER WITHOUT CONTRAST, RIGHT CLINICAL INFORMATION: M12.819 - Other specific arthropathies, not elsewhere classified, unspec COMPARISON: 10/03/2023 TECHNIQUE: Axial multidetector volumetric imaging was obtained through the shoulder without intravenous contrast material. Multiplanar reformatted images were submitted. This CT examination was performed using dose optimization techniques as appropriate, variously including the following: *Automated exposure control *Adjustment of mA and/or kV according to patient size (this includes techniques or standardized protocols for targeted exams where dose is matched to indication/reason for exam; i.e. extremities or head) *Use of iterative reconstruction technique DLP: 431 mGy-cm. FINDINGS: Moderate degenerative arthritis in the glenohumeral joint characterized by nonuniform joint space narrowing, marginal osteophytes, and articular cortical irregularity. There is no glenoid retroversion.. Trace joint effusion.. Glenoid retroversion: 3 degrees Glenoid vault depth: 19 mm There is moderate degenerative arthritis of the acromioclavicular joint. The undersurface of the acromion is hooked with anterior subacromial spurs. Imaged portion of the clavicle is intact. The included portions of the ribs and chest wall are intact without fractures. No significant pulmonary abnormalities in the imaged portion of the lung. No axillary adenopathy. There is marked enlargement of the thyroid gland with heterogeneous nodularity, partially imaged on this study. There is an enlarged 1.3 cm right upper paratracheal lymph node. There is a small glenohumeral joint effusion. There is [id number] atrophy of the supraspinatus and infraspinatus muscles as well as the more cephalad fibers of the subscapularis.. CT/CT shoulder RT wo IV con IMPRESSION: 1. Moderate glenohumeral and acromioclavicular osteoarthritis. 2. Hooked acromial undersurface with anterior subacromial spurring. 3. [id number] atrophy of the supraspinatus and infraspinatus muscles. 4. Marked enlargement of the thyroid gland with heterogeneous nodularity, partially imaged on this study. 5. An enlarged right upper paratracheal lymph node. Based on the recommendations of the ACR Incidental Thyroid Findings Committee (JACR 2014; 12(2):143-50), further evaluation by thyroid ultrasound is recommended for a heterogeneously enlarged thyroid gland. If the patient has a limited life expectancy or significant co-morbidities, follow-up is only recommended if clinically warranted
== END 2024-02-19 10:05 | disposition home or self-care (01) ==
LOC: HO.CT 10:04
PROVIDERS: Visit Provider Physician Assistant
DX: M12.811 Other specific arthropathies, not elsewhere classified, right shoulder (principal)
CPT/HCPCS: 73200

== ENCOUNTER 2024-03-20 08:59 | Outpatient (AMB) | payer MEDICARE, BC, SELFPAY ==
--- NOTE | 2024-03-20 09:09 | A.OFFVIS_ITS ---
Vital Signs 03/20/24 09:10 Height 5 ft 3 in Weight 150 lb BMI 26.6 Intake Visit Reasons: R TSA 03/25/24 w/NE Intake Note: Zainab is an 83 year old female who presents today for a pre op appointment of a right reverse total shoulder arthroplasty scheduled on 03/26/2024?with NE. Pain management agreement reviewed and signed. Allergies No Known Allergies [No Known Allergies*] Allergy (Unverified 03/20/24 09:35) HPI HPI R TSA 03/25/24 w/NE: Details: 83-year-old left hand dominant female who presents in the office today for her preoperative history and physical exam prior to a right reverse total shoulder arthroplasty to be performed on 03/26/[address] Larry Wood.? ? Patient has no known allergy history.? ? Patient is currently taking, as follows:? -Cetirizine 10 mg PO daily PRN? -Cholecalciferol 25 mcg PO daily? -Glucosamine-chondroitin 250-200 mg PO daily? -Lactobacillus combination no. 4 3,000 mmu cells PO daily? -Rosuvastatin 20 mg PO daily? ? Patient has a medical history, as follows:? -Hx of MRSA infection? -Hx of breast cancer? -Hyperlipidemia? ? Patient has a surgical history, as follows:? -Hx of colonoscopy? -Hx of lumpectomy of left breast? -Hx of tonsillectomy? -Hx of total right hip arthroplasty; 05/29/2017 - Dr. Larry Wood? -Hx of total right knee arthroplasty; x3 TKA at [facility]? PFSH Medical History (Updated 03/17/24 @ 11:47 by Rosio Lorenzo RN) History of MRSA infection Osteoarthritis Left humeral fracture Breast cancer Hyperlipemia Surgical History (Updated 03/17/24 @ 11:47 by Rosio Lorenzo RN) H/O colonoscopy History of lumpectomy of left breast Hx of tonsillectomy 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) History of right knee joint replacement Social History Are you a primary healthcare prof to a significant other at home: No Do you presently have visiting nurse or other home services: No Patient Tobacco Use Status: Never used Tobacco Current occupational status: retired Review of Systems Const All systems reviewed & are unremarkable except as noted in HPI and below Physical Exam Vital Signs: BMI result Body Mass Index 26.6 Const General: cooperative, healthy appearing, comfortable, no acute distress, well developed, alert and awake Orientation/consciousness: patient oriented x3 HEENT Head: Yes normal to inspection, Yes normocephalic and Yes atraumatic Eyes General: appearance normal, both eyes and all related structures Neck Neck: Yes normal visual inspection and Yes no lymphadenopathy Resp Effort & Inspection: normal respiratory effort and able to speak in complete sentences Cardio Rate: regular rate Peripheral pulses: Peripheral pulses 2+ throughout GI Inspection: Yes normal to inspection Palpation (GI): Soft to palpation Skin General skin exam: no rashes or lesions noted Neuro General: patient oriented x3 Extrem Other: Right shoulder: Skin is clean, dry, and intact. Positive drop-arm. Positive horn blower. Positive lag. Psych Mental Status: mental status grossly normal Assessment & Plan Assessment & Plan (1) Rotator cuff arthropathy of right shoulder: Code(s): M12.811 - Other specific arthropathies, not elsewhere classified, right shoulder Category: Medical Plan Ms. Waldron is a 83-year-old left hand dominant female who presents in the office today for her preoperative history and physical exam prior to a right reverse total shoulder arthroplasty to be performed on 03/26/[address] Larry Wood.? ? Patient has no known allergy history.? ? Patient is currently taking, as follows:? -Cetirizine 10 mg PO daily PRN? -Cholecalciferol 25 mcg PO daily? -Glucosamine-chondroitin 250-200 mg PO daily? -Lactobacillus combination no. 4 3,000 mmu cells PO daily? -Rosuvastatin 20 mg PO daily? ? Patient has a medical history, as follows:? -Hx of MRSA infection? -Hx of breast cancer? -Hyperlipidemia? ? Patient has a surgical history, as follows:? -Hx of colonoscopy? -Hx of lumpectomy of left breast? -Hx of tonsillectomy? -Hx of total right hip arthroplasty; 05/29/2017 - Dr. Larry Wood? -Hx of total right knee arthroplasty; x3 TKA at [facility]? ? I discussed in detail the procedure and what to expect pre and post operatively. We discussed the risks, benefits, alternatives to the surgery and the rehabilitation course. The risks include infection, bleeding, nerve injury, ongoing pain, swelling, and stiffness, perioperative risk of injury to bones and soft tissues, and blood clots.?? ? I have answered all questions and with their understanding they have consented to move forward with a right reverse total shoulder to be performed on 03/26/[address] Larry Wood.? ? Follow-up will be at the post operative appointment on 04/10/2024 at 11:30 am, or sooner if needed.? X-rays of the right shoulder were obtained in the office today for surgical planning. ? Orders: Orders XR shoulder RT min 2V Today M25.519 - Pain in unspecified shoulder Patient Instructions: Scribed by Tricia Mcgowan medical supply technician, for Lacey Metzger PA-C on 03/20/2024 at 9:18 am, EST.? Coding Level of Care Code Global (00429) Diagnoses Rotator cuff arthropathy of right shoulder M12.811
[2024-03-20 09:10] VITALS: BMI 26.6
== END 2024-03-20 10:13 | disposition home or self-care (01) ==
PROVIDERS: Visit Provider Physician Assistant
DX: M12.811 Other specific arthropathies, not elsewhere classified, right shoulder (principal)
CPT/HCPCS: 99024

== ENCOUNTER 2024-03-20 09:37 | Outpatient (REF) | payer MEDICARE, BC, SELFPAY ==
--- NOTE | ~2024-03-20 | XR_ITS ---
EXAMINATION: XR SHOULDER, RIGHT CLINICAL INFORMATION: Pain in unspecified shoulder. COMPARISON: February 19, 2024 CT shoulder, December 10, 2023 x-ray shoulder. TECHNIQUE: Two views of the right shoulder. FINDINGS: Expected postsurgical changes with tucker and soft tissue swelling identified status post total shoulder prosthesis placement. Hardware appears intact. Diffuse demineralization. Degenerative changes in the acromioclavicular joint. XR/XR shoulder RT min 2V IMPRESSION: Expected postsurgical changes status post total shoulder prosthesis placement.
== END 2024-03-20 09:38 | disposition home or self-care (01) ==
LOC: HO.HOSX 09:37
PROVIDERS: Visit Provider Physician Assistant
DX: Z01.818 Encounter for other preprocedural examination (principal); M12.811 Other specific arthropathies, not elsewhere classified, right shoulder
CPT/HCPCS: 73030; 99212

== ENCOUNTER 2024-03-26 09:29 | Inpatient (IN) | payer MEDICARE, BC, SELFPAY ==
[2024-03-17 11:52] VITALS: BP 150/72; PULSE 84; RESP 18; O2SAT 98; BMI 28.0
[2024-03-17 13:45] LABS: MRSA Nasal PCR NEGATIVE (Negative); SA Nasal PCR NEGATIVE (Negative)
[2024-03-26] VITALS (10 sets, daily range): BP systolic 129–167; BP diastolic 67–87; PULSE 85–110; RESP 12–18; TEMP 36.1–36.6; O2SAT 97–99
--- OUTSIDE RECORDS SUMMARY | 2024-03-26 09:33 | XMS_ITS | Continuity of Care Document ---
Author Organization [facility] Address [address] [place] [address]- Care Team Providers Care Curtain Mender Name Role Phone Simeon Solitario DO Primary Care Physician Encounter 03/05/20 - 05/30/20 [facility] [address], [address] [address]- [phone] Attending Physician: Simeon Solitario DO Admitting Physician: Simeon Solitario DO Referring Physician: Simeon Solitario DO Allergies, Adverse Reactions, Alerts Substance Reaction Severity Status NKA Active Medications Coumadin 1 mg oral tablet See Instructions, Take 1-10 tablets daily by mouth as directed by MD, # 150 tablet, 0 Refills, Maintenance, 04/14/16 9:22:00, Tablet Start Date: 04/14/16 Status: Ordered docusate sodium 100 mg oral capsule 100 mg, 1, capsule, By Mouth, 2 times a day, # 60 capsule, Refills 0, Tot. Refills 0, Maintenance, 04/14/16 9:22:10, Print Requisition Start Date: 04/14/16 Status: Ordered HYDROmorphone 2 mg oral tablet 1-2 tablets, By Mouth, Every 4 hours, PRN Pain , Severe, # 50 tablet, 0 Refills, Maintenance, 04/14/16 9:22:20, Tablet Start Date: 04/14/16 Status: Ordered LORazepam 0.5 mg oral tablet = 0.5 mg, By Mouth, 3 times a day, PRN Anxiety, 0 Refills, Maintenance, 02/11/16 9:58:29, Tablet Start Date: 02/11/16 Status: Ordered Probiotic Formula oral capsule 1 capsule, By Mouth, Daily, 0 Refills, Maintenance, 02/08/16 1:27:24 Start Date: 02/08/16 Status: Ordered saccharomyces boulardii lyo 250 mg oral capsule = 250 mg, By Mouth, 2 times a day, 0 Refills, Maintenance, 02/11/16 9:58:23, Capsule Start Date: 02/11/16 Status: Ordered Problem List Condition Effective Dates Status Health Status Inform ant LEFT Carcinoma of breast, ER + and NH+(Confirmed) 1 04/04/06 Active Infected prosthetic knee joint(Confirmed) Active MRSA infection(Confirmed) Active 1lEFT BREAST, Pt1A,PnO, ER+,NH+, Lumpectomy 04/18/2006, radiation and Tamoxifen x 5 years Social History Social History Type Response Smoking Status Never smoker; Tobacc o user in household: No entered on: 10/14/14 Sex
--- NOTE | 2024-03-26 10:03 | MHC.SHP ---
Pre-Procedural Eval Section A - 24 Hr Update-Section A only Date of Service: 03/26/24 The patient is an INPATIENT: No Changes since office visit: No Cold of Flu in the past 2 weeks, No New Medical Problems, No Changes in Medication and No Patient answered all questions The patient has been examined within 24 hours of the surgical procedure. The History & Physical has been completed within 30 days and I have reviewed it.: Yes Section B - Complete if H&P > 30 days Chief Complaint: RT TSA Allergies: Allergies Allergy/AdvReac Type Severity Reaction Status Date / Time No Known Allergies Allergy Verified 03/26/24 09:55 [No Known Allergies*] Plan I have reviewed the history and physical and performed a pertinent physical examination on my patient. No changes have occurred unless specified. Time Spent With Patient Time: Total time managing care of this patient today ____ minutes.
[2024-03-26] MEDS: Lactated Ringers 1,000 ML 100 ML IVCONT ×2 (10:12→16:13)
--- NOTE | 2024-03-26 10:55 | HO.ANESPROP2 ---
Documented by User: Jeane Dior NP 03/17/24 12:24 HPI - Anesthesia Eval Consult details Narrative: 83yo F for Right Shoulder Total Arthroplasty, 03/25/24 Medically optimized per PCP No recent illness No CP/SOB with gardening or walking [employer] Left breast CA s/p lumpectomy - OK to use PMFSH Active Problems Active Problems: All Active Problems Rotator cuff arthropathy of right shoulder (Acute) Rotator cuff tear, right (Acute) Dislocation of right shoulder joint (Acute) Proximal humerus fracture (Acute) Left humeral fracture (Acute) Past Medical History Medical History History of MRSA infection Osteoarthritis Left humeral fracture Breast cancer Hyperlipemia Family History Family history of problems with anesthesia: No Surgical History Surgical History (Updated 03/26/24 @ 09:55 by Malathi Wray RN) H/O colonoscopy History of lumpectomy of left breast Hx of tonsillectomy 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) History of right knee joint replacement History of Problems with Anesthesia: No Social History Social History Are you a primary childbirth and infant care teacher to a significant other at home: No Do you presently have visiting nurse or other home services: No Patient Tobacco Use Status: Never used Tobacco Use of substances other than those prescribed or required for medical reasons: No Have you been hit, kicked, punched, or otherwise hurt by someone within the past year? If so, by whom?: No Are you DNR?: No Advance Directives: No Advance Directives Information Provided: Yes Advance Directives on File: No Recently lost weight without trying: No Eating poorly because of decreased appetite: No Nutrition Risks: No Nutritional Risk Patient : No : No Poor oral hygiene: Yes (full upper and lower dentures) Current occupational status: retired Meds Allergies Allergy/AdvReac Type Severity Reaction Status Date / Time No Known Allergies Allergy Verified 03/26/24 09:55 [No Known Allergies*] Home Medications ?Medication ?Instructions ?Recorded ?Confirmed ?Last Taken ?Type rosuvastatin 20 mg tablet 20 mg PO DAILY 05/17/23 03/17/24 03/25/24 History cholecalciferol (vitamin D3) 25 25 mcg PO DAILY 03/14/24 03/14/24 03/25/24 History mcg (1,000 unit) tablet (Vitamin D3) glucosamine-chondroitin 250 mg-200 1 tab PO DAILY 03/14/24 03/17/24 03/25/24 History mg tablet (Osteo Bi-Flex) lactobacillus combination no.4 3 3,000 mmu cells PO DAILY 03/14/24 03/14/24 03/25/24 History billion cell capsule (Probiotic) cetirizine 10 mg tablet (Zyrtec) 10 mg PO DAILY PRN Allergy Symptoms 03/17/24 03/17/24 03/25/24 History Exam Height,Weight and Vital Signs: Height 5 ft 3 in Weight 71.668 kg Last Vital Signs Pulse 84 03/17/24 11:52 Resp 18 03/17/24 11:52 BP 150/72 H 03/17/24 11:52 Pulse Ox 98 03/17/24 11:52 O2 Del Method Room Air 03/17/24 11:52 Pertinent Lab Results Pertinent Lab Results: CBC, CMP, A1C, PT/INR 02/2024 from outside facility WNL Narrative Narrative: EKG 11/2023 NSR @ 77 Airway Mallampati Class: I TM Dist: >3cm Neck ROM: Full Denture: Upper and Lower Heart: RRR Lungs: CTAB Assessment and Plan Assessment Anesthesia Assessment: Anesthesia Plan Discussed and PAT Visit Final Anesthetic Review Family History of Problems with Anesthesia: No History of Problems with Anesthesia: No Documented by User: Malathi Alonso DO 03/26/24 10:56 HPI - Anesthesia Eval Consult details Narrative: 83yo F for Right Shoulder Total Arthroplasty, 03/26/24 Medically optimized per PCP No recent illness No CP/SOB with gardening or walking [employer] Left breast CA s/p lumpectomy - OK to use PMFSH Past Medical History Medical History History of MRSA infection Osteoarthritis Left humeral fracture Breast cancer Hyperlipemia Family History Family history of problems with anesthesia: No Surgical History Surgical History (Updated 03/26/24 @ 09:55 by Malathi Wray RN) H/O colonoscopy History of lumpectomy of left breast Hx of tonsillectomy 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) History of right knee joint replacement History of Problems with Anesthesia: No Social History Social History Are you a primary childbirth and infant care teacher to a significant other at home: No Do you presently have visiting nurse or other home services: No Patient Tobacco Use Status: Never used Tobacco Use of substances other than those prescribed or required for medical reasons: No Have you been hit, kicked, punched, or otherwise hurt by someone within the past year? If so, by whom?: No Are you DNR?: No Advance Directives: No Advance Directives Information Provided: Yes Advance Directives on File: No Recently lost weight without trying: No Eating poorly because of decreased appetite: No Nutrition Risks: No Nutritional Risk Patient : No : No Poor oral hygiene: Yes (full upper and lower dentures) Current occupational status: [employer] Allergies Allergy/AdvReac Type Severity Reaction Status Date / Time No Known Allergies Allergy Verified 03/26/24 09:55 [No Known Allergies*] Home Medications ?Medication ?Instructions ?Recorded ?Confirmed ?Last Taken ?Type rosuvastatin 20 mg tablet 20 mg PO DAILY 05/17/23 03/17/24 03/25/24 History cholecalciferol (vitamin D3) 25 25 mcg PO DAILY 03/14/24 03/14/24 03/25/24 History mcg (1,000 unit) tablet (Vitamin D3) glucosamine-chondroitin 250 mg-200 1 tab PO DAILY 03/14/24 03/17/24 03/25/24 History mg tablet (Osteo Bi-Flex) lactobacillus combination no.4 3 3,000 mmu cells PO DAILY 03/14/24 03/14/24 03/25/24 History billion cell capsule (Probiotic) cetirizine 10 mg tablet (Zyrtec) 10 mg PO DAILY PRN Allergy Symptoms 03/17/24 03/17/24 03/25/24 History Exam Exam Date and Time: March 26, 2024 1053 Height,Weight and Vital Signs: Height 5 ft 3 in Weight 71.668 kg Last Vital Signs Pulse 84 03/17/24 11:52 Resp 18 03/17/24 11:52 BP 150/72 H 03/17/24 11:52 Pulse Ox 98 03/17/24 11:52 O2 Del Method Room Air 03/17/24 11:52 Vital Signs Pulse Rate 84 03/17/24 11:52 Respiratory Rate 18 03/17/24 11:52 Blood Pressure 150/72 H 03/17/24 11:52 Pulse Oximetry 98 03/17/24 11:52 Oxygen Delivery Method Room Air 03/17/24 11:52 Temperature 97.8 F 03/26/24 10:09 Pulse Rate 90 03/26/24 10:09 Respiratory Rate 16 03/26/24 10:09 Blood Pressure 167/87 H 03/26/24 10:09 Pulse Oximetry 99 03/26/24 10:09 Oxygen Delivery Method Room Air 03/26/24 10:09 Airway Mallampati Class: I TM Dist: <=3cm Neck ROM: Full Denture: Upper and Lower Heart: S1S2 Assessment and Plan Assessment Anesthesia Assessment: Anesthesia Plan Discussed and Chart Reviewed Final Anesthetic Review Family History of Problems with Anesthesia: No History of Problems with Anesthesia: No NPO: Yes ASA Class: II Final Preanesthetic Review: No Changes in Pt Med Stat, Meds/Allgs Chart Reviewed, Consent Obtained/Reviewed and Anes Risks/Benef Reviewed Patient Risk: Low Procedure Risk: Intermediate Anesthetic Plan Anesthetic Plan: GA, Regional Block (right brachial plexus block) and Agree w/ Assess. and Plan Disposition: Standard PACU
--- NOTE | 2024-03-26 14:59 | PM.OP ---
Brief Operative Note Date of Service: 03/26/24 Pre-op diagnosis: right rtc arthropathy Post-op diagnosis: same Procedure: rTSA right Implants: Tornier Surgeon: Larry Wood MD Anesthesia: GETA and regional Was an Senior Advisory used for this Procedure?: No Estimated blood loss (mL): 200 IV fluids (mL): 1,000 Pathology: other Condition: stable Disposition: PACU
--- NOTE | 2024-03-26 15:49 | HO.PM.IMCN ---
History of Present Illness Data of Consult Service Date: 03/26/24 Requesting physician: Larry Wood Primary Care Provider: Unknown Physician HPI Reason for consult: medical management 83-year-old female with history of hyperlipidemia, osteoarthritis, and remote history of breast cancer admitted to orthopedic surgery consult placed hospitalist service for medical management. Not on blood thinners preoperatively. Vital signs are stable postoperatively. Reports she is still experiencing numbness in the right upper extremity. She has no complaints at this time. No lightheadedness, nausea, vomiting, shortness of breath, palpitations, chest pain. She denies any alcohol use, illicit drug use, marijuana use, or cigarette smoking. Review of Systems Review of Systems: Yes all other systems are reviewed and are negative [facility] Medical History History of MRSA infection Osteoarthritis Left humeral fracture Breast cancer Hyperlipemia Surgical History H/O colonoscopy History of lumpectomy of left breast Hx of tonsillectomy 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) History of right knee joint replacement Social History Household Members: None Housing: House Are you a primary healthcare financial analyst to a significant other at home: No Do you presently have visiting nurse or other home services: No Patient Tobacco Use Status: Never used Tobacco Use of substances other than those prescribed or required for medical reasons: No Currently Displaying Signs/Symptoms of Drug Intoxication Withdrawal: No Have you been hit, kicked, punched, or otherwise hurt by someone within the past year? If so, by whom?: No Do you feel safe in your current relationship?: No Current Relationship Is there a partner from a previous relationship who is making you feel unsafe now?: No Are you made to feel afraid or neglected: No Are you DNR?: No Advance Directives: No Advance Directives Information Provided: Yes Advance Directives on File: No Do you have a plan to hurt others: No Plan Recently lost weight without trying: No Eating poorly because of decreased appetite: No Nutrition Risks: No Nutritional Risk Patient : No : No Poor oral hygiene: No Current occupational status: retired Meds Allergies Allergy/AdvReac Type Severity Reaction Status Date / Time No Known Allergies Allergy Verified 03/26/24 09:55 [No Known Allergies*] Active Medications: Current Medications Acetaminophen (Acetaminophen 325 Mg Tablet) 650 mg PO Q6H PRN PRN Reason: Pain, Mild (Pain Scale 1-3), fever or headache Aspirin (Aspirin 325 Mg Tablet) 325 mg PO BID [facility] Hydromorphone HCl (Hydromorphone Hcl 0.5 Mg/0.5 Ml Syringe) 0.25 mg IVPUSH Q4H PRN; Protocol PRN Reason: Pain, Severe (Pain Scale 7-10) Lactated Ringer's (Lr) 1,000 mls @ 100 mls/hr IVCONT .Q10H [facility] Dextrose/Sodium Chloride (D5ns) 1,000 mls @ 80 mls/hr IVCONT .[id number] [facility] Cefazolin Sodium/Dextrose (Ancef) 2 gm in 50 mls @ 100 mls/hr IV POSTOP ONE Stop: 03/26/24 18:29 Loratadine (Loratadine 10 Mg Tablet) 10 mg PO DAILY PRN PRN Reason: Allergy Symptoms Ondansetron HCl (Ondansetron Hcl 4 Mg/2 Ml Vial) 4 mg IVPUSH Q8H PRN PRN Reason: Nausea and Vomiting Oxycodone HCl (Oxycodone Hcl Immed Release 5 Mg Tablet) 5 mg PO Q4H PRN PRN Reason: Pain, Moderate(Pain Scale 4-6) Sodium Chloride (0.9 % Sodium Chloride Flush 3 Ml Syringe) 3 ml IVFLUSH QSHIFT [facility] Home Medications ?Medication ?Instructions ?Recorded ?Confirmed ?Last Taken ?Type rosuvastatin 20 mg tablet 20 mg PO DAILY 05/17/23 03/17/24 03/25/24 History cholecalciferol (vitamin D3) 25 25 mcg PO DAILY 03/14/24 03/14/24 03/25/24 History mcg (1,000 unit) tablet (Vitamin D3) glucosamine-chondroitin 250 mg-200 1 tab PO DAILY 03/14/24 03/17/24 03/25/24 History mg tablet (Osteo Bi-Flex) lactobacillus combination no.4 3 3,000 mmu cells PO DAILY 03/14/24 03/14/24 03/25/24 History billion cell capsule (Probiotic) cetirizine 10 mg tablet (Zyrtec) 10 mg PO DAILY PRN Allergy Symptoms 03/17/24 03/17/24 03/25/24 History Physical Exam Vital Signs and Narrative: Vital Signs: Last Vital Signs Temp 97 F 03/26/24 15:05 Pulse 85 03/26/24 15:05 Resp 16 03/26/24 15:05 BP 132/79 03/26/24 15:05 Pulse Ox 97 03/26/24 15:05 O2 Del Method Room Air 03/26/24 15:05 O2 Flow Rate 2 03/26/24 15:05 BMI result Body Mass Index 28.0 Constitutional - Awake and Alert, No apparent distress Eyes - PERRLA, EOMI Cardiovascular - S1S2, RRR, No edema Respiratory - Normal lung expansion, Normal respiratory effort, No respiratory distress, CTA bilaterally Gastrointestinal - NT / ND; +BS; No rebound or guarding Extremities - no calf tenderness bilaterally, no swelling Skin - Warm/Dry Neurological - Alert & oriented x3 Psychological - Appropriate affect Assessment and Plan (1) Rotator cuff arthropathy of right shoulder: Status: Acute Plan 83-year-old female with history of hyperlipidemia, osteoarthritis, and remote history of breast cancer admitted to orthopedic surgery consult placed hospitalist service for medical management. # osteoarthritis right shoulder s/p TSA pod 0 -plan per Orthopedic surgery # hyperlipidemia -continue statin Thank you for allowing me to participate in this consult. Signing off at this time. Please do not hesitate to call for further questions or for any acute medical issues.
[2024-03-26] MEDS: ceFAZolin Sodium/Dextrose,Iso 2 GM/50 ML PIGGYBACK IV (17:53)
--- NOTE | 2024-03-26 18:03 | PHA.MEDREC ---
Pharmacy Consult ? Medication Reconciliation Pharmacy has completed the medication reconciliation.
[2024-03-26] MEDS: Aspirin 325 MG TABLET PO (18:58)
[2024-03-27] VITALS: BP 124/70; PULSE 95; RESP 16; TEMP 36.4; O2SAT 95
[2024-03-27] MEDS: Lactated Ringers 1,000 ML 100 ML IVCONT (01:50)
[2024-03-27] MEDS: oxyCODONE HCl Immed Release 5 MG TABLET PO (02:29)
[2024-03-27 04:00] VITALS: BP 148/67; PULSE 72; RESP 16; TEMP 36.2; O2SAT 97
[2024-03-27] MEDS: HYDROmorphone HCl 0.5 MG/0.5 ML SYRINGE 0.25 MG IVPUSH ×2 (04:29→10:56)
[2024-03-27 06:03] LABS: Hemoglobin 11.5 g/dl (12.0-16.0)
[2024-03-27 06:20] LABS: Anion Gap 12 (12-20); Blood Urea Nitrogen 18 mg/dL (9-16); Calcium 8.3 mg/dL (8.4-10.2); Carbon Dioxide 24 mmol/L (22-29); Chloride 111 mmol/L (96-108); Creatinine Clr Calc Pharmacy 48.7; Estimated Glomerular Filt Rate > 60; Glucose Fasting 148 mg/dL (60-99); Potassium 4.3 mmol/L (3.3-5.1); Sodium 143 mmol/L (135-145)
[2024-03-27 07:46] VITALS: BP 105/59; PULSE 78; RESP 16; TEMP 37.1; O2SAT 96
[2024-03-27] MEDS: Aspirin 325 MG TABLET PO (08:24)
--- NOTE | 2024-03-27 09:18 | MHC.CM.PN ---
Addendum entered by Eli Ta RN 03/27/24 11:18: Patient medically cleared for dc home w/ services (SN/PT/OT). [facility] is aware of dc and services ordered. They are also aware patient is requesting ANALYTICS LEAD. Brother is at bedside to transport home. RN aware. Original Note: IMM delivered. Patient lives in a home alone. 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 Uses a cane PRN for long distances. PCP ROSALBA Casillas Reports she has an HCP naming her daughter Allison Hill as HCA. Copy requested. States she will bring a copy to her ortho f/u appt. DP: Pending PT eval. Goal is home w/ PT/OT/ANALYTICS LEAD through [facility]. If [facility] does not have ANALYTICS LEAD availability patient will call local agencies, phone numbers for 3 agencies provided. EC referral sent. Patient's brother will also be staying with her for 2 weeks to assist. Brother will transport home. CM will continue to follow.
--- NOTE | 2024-03-27 10:39 | P.DS_ITS ---
DS: Providers Provider Date of Service: 03/27/24 Date of admission: 03/26/24 09:29 Primary care physician: Unknown Physician Consults: 03/26/24 15:03 Consult to Hospitalist Routine Comment: Consulting Provider: Hospitalist Reason For Exam: post op joint DS: Diagnosis Discharge Diagnosis (1) Rotator cuff arthropathy of right shoulder: Status: Acute DS: Summary Hospital Course Hospital Course: The patient underwent a successful right reverse total shoulder arthroplasty on 03/26/[address] Wood, was transferred to PACU and then to the floor to recover. During their stay, their vitals were stable, afebrile at 98.8. Labs were unremarkable, H/H 11.5/36.0. POD 1 she was started on ASA for DVT ppx. She will remain in a sling at all times unless for hygiene or exercises. Physical therapy should include Elbow and wrist ROM, Pendulums. Avoid bringing the arm behind the coronal plane of the body. Sling should be resting infront with sling bumper below right breast bone. Prior to discharge, dressing was clean dry and intact. The Aquacel dressing should remain intact and dry at all times. Any concerns with the dressing, please contact orthopedic office. No showering. The plan is to be discharged home with OT services. Time Attestation Discharge Coordination Time (in mins): 30 Quality: Safe Use of Opioids Does Pt have an Active Cancer Diagnosis on the Problem List?: No Quality: Stroke Does the patient have a stroke diagnosis?: No Physical Exam Vital Signs: Vital Signs: Last Vital Signs Temp 98.8 F 03/27/24 07:46 Pulse 78 03/27/24 07:46 Resp 16 03/27/24 07:46 BP 105/59 L 03/27/24 07:46 Pulse Ox 96 03/27/24 07:46 O2 Del Method Room Air 03/27/24 07:46 O2 Flow Rate 2 03/26/24 15:05 BMI result Body Mass Index 28.0 Const: General: cooperative, healthy appearing and no acute distress Resp: Effort & Inspection: normal respiratory effort and able to speak in complete sentences Cardio: Rate: regular rate Peripheral pulses: Peripheral pulses 2+ throughout GI: Palpation (GI): Soft to palpation Skin: General skin exam: no rashes or lesions noted Extrem: Other: Right shoulder bandage clean, dry and intact. Anterior deltoid sensation intact. She is able to perform wrist and hand ROM. NVI. DS: Data Data Completed and Pending Pending studies at discharge: Pending at discharge 03/26/24 13:09 Surgical [PTH] Routine Labs on day of discharge: Laboratory Results - last 24 hr 03/27/24 05:12 Hgb 11.5 L Hct 36.0 L Sodium 143 Potassium 4.3 Chloride 111 H Carbon Dioxide 24 Anion Gap 12 BUN 18 H Creatinine 0.80 Estim Creat Clear Calc 48.7 Estimated GFR > 60 Fasting Glucose 148 H Calcium 8.3 L D Discharge Plan Discharge Anticipated Discharge Date/Time: 03/27/24 10:34 Patient Disposition: Home Health Service Discharge Diagnosis: rTSA right shoulder Referrals: Mu Rachel PA-C [Physician Buffet Runner] - 2 Weeks (04/10/24 11:30 [facility]geons Mu Rachel PA-C) Discharge Medications: New oxycodone 5 mg Tablet 5 mg PO Q4H PRN (Reason: Pain, Moderate(Pain Scale 4-6)) 7 Days Qty: 42 0RF Rx Instructions: Partial Fill upon patient request. aspirin 81 mg tablet,delayed release (DR/EC) 81 mg PO BID 42 Days Qty: 84 0RF acetaminophen 325 mg Tablet 650 mg PO Q6H PRN (Reason: Pain, Mild (Pain Scale 1-3), fever or headache) 30 Days Qty: 240 0RF Continued glucosamine-chondroitin [Osteo Bi-Flex] 250-200 mg Tablet 1 tab PO DAILY Rx Instructions: give after food/meal cholecalciferol (vitamin D3) [Vitamin D3] 25 mcg (1,000 unit) Tablet 25 mcg PO DAILY Probiotic 3 billion cell Capsule 3,000 mmu cells PO DAILY Rx Instructions: administer with a meal cetirizine [Zyrtec] 10 mg Tablet 10 mg PO DAILY PRN (Reason: Allergy Symptoms) rosuvastatin 20 mg tablet 20 mg PO DAILY Discharge Orders: Discharge Order (Routine); Ordered 03/27/24 Ordered By: Mu Rachel Diet: Regular diet Activity on Discharge: Use cane or walker Stand Alone Forms: Patient Portal Discharge page Print Language: Swedish Care Plan Goals: Restore function of joint Health Concerns: none Plan of Treatment: Physical Therapy Pain management DVT prophylaxis Assessment: * Wear sling at all times unless for hygiene and exercises * Pendelums three times a day * Physical Therapy/ Occupation therapy * ---No raising Right arm above 90 degrees, No ER/IR beyond 30 degrees, no A bduction beyond 90 degrees * ---No heavy lifting * ---Elbow and wrist ROM ok * Aspirin 81mg twice a day * Follow up with orthopedics in 2 weeks
--- NOTE | 2024-03-27 10:45 | W.MHC.F2F ---
Service Date Service Date: 03/27/24 Encounter Date of encounter: 03/27/24 Reasons for Services Signs and symptoms assessed: Weakness, poor balance, poor gait mechanics Reason for senior living: postoperative assessment and/or care Reason for physical therapy: home safety and mobility, therapeutic exercises, restore joint function, gait/transfer training, ADL training and energy conservation Reason for occupational therapy: home safety and mobility, therapeutic exercises, restore joint function, gait/transfer training, ADL training and energy conservation Homebound: Leaving the home is medically contraindicated at this time without the asist of a device and/or another person due th the listed conditions above and below. Reason homebound: unsteady gait / fall risk, poor balance / fall risk and unable to drive Homebound supporting statement: Pt. is considered home bound due to recent surgery. Unable to drive, poor balance, poor gait mechanics. Certification: Based on the above findings, I certify that this patient is confined to the home and needs intermittent senior living care, physical therapy and/or speech therapy, or continues to need occupational therapy. The patient is under my care, and I have initiated the establishment of the plan of care. The patient will be followed by a physician who will periodically review the plan of care. Time Spent With Patient Time: Total time managing care of this patient today ____ minutes.
--- NOTE | 2024-03-27 18:51 | HO.POSTANES ---
Post Anesthesia Evaluation Post Anesthesia Evaluation Date of Service: 03/27/24 Vital Signs: Vital Signs Temp Pulse Resp BP Pulse Ox O2 Del Method 03/27/24 07:46 98.8 F 78 16 105/59 L 96 Room Air Anesthesia: General Endotracheal-GETA Mental Status: Awake Pain Control: Satisfactory Nausea/Vomiting: None Hydration: Adequate Anesthesia-Related Issues: No Anes. Related Issues
--- NOTE | 2024-04-18 06:47 | P.OP_ITS ---
Operative Note Operative Note Date of Service: 03/26/24 Narrative: Date of Service: 03/26/24 Pre-op diagnosis: right rtc arthropathy Post-op diagnosis: same Procedure: rTSA right Implants: Tornier Surgeon: Larry Wood MD Anesthesia: GETA and regional Was an Rim Roller Setter used for this Procedure?: No Estimated blood loss (mL): 200 IV fluids (mL): 1,000 Pathology: other Condition: stable Disposition: PACU Patient was brought to the operating room and placed in the beach chair position on the surgical table. The limb was prepped and draped in standard sterile fashion and a time out was called to identify proper site, proper procedure and IV antibiotics per weight were administered. I began by making a deltopectoral incision from the coracoid to the pectoralis insertion. Blunt dissection identified the cephalic vein which was retracted laterally. Blunt dissection was taken down to the 3 sisters which were cauterized. I then made a full-thickness capsulotomy involving the subscapularis. This was then tagged and the arm was externally rotated and extended and the head was dislocated. The humeral head was high riding and I performed a release of the reamining posterior fibers of the rotator cuff. There was no supraspinatus/infraspinatus. Once the head was well visualized a anatomic neck cut was made in approximately 132 degree angle while protecting the posterior and inferior soft tissues. A starter awl was used to identify the canal and then I broached up to a size 1b at 30 degrees of version. I then placed my head protector and turned my attention to the glenoid. Posterior anterior and superior glenoid retractors were placed and the biceps was tenoto mized and labral tissue was removed. Based on the preoperative CT and templating a guide pin was placed in approximately 5 degrees of retroversion and neutral inclination. Using a wedge Reamer I reamed down to bleeding bone mostly inferiorly and placed the small glenoid drill guide. My central screw was drilled to a depth of 35mm and a 25mm baseplate was inserted with a 6.5 x 30mm central reverse screw was placed. An additional 3 scews were placed into the baseplate using standard AO technique. I had excellent fixation, A temporary glenosphere was placed and I turned my attention to the humerus. A standard flex stem was trialed and I was satisfied with the motion and the stability. I therefore removed all trials and placed a 36 mm glenosphere with a central screw. I was satisfied with the position and the stability of these components. I placed a 2b flex stem and again trialed with different componenets until I was satisfied with the 36x9 12.5 tray. My final implant was inserted and the shoulder reduced. I was satisfied with the range of motion and stability I irrigated copiously. Subscapularis was not repairable. I closed in a layered fashion with absorbable suture and tucker and the patient was placed in a sterile dressing and an abduction sling. She was extubated brought to recovery room stable condition there were no known complications.
== END 2024-03-27 12:26 | disposition home health service (06) | DRG 483 ==
LOC: HO.SSSA 09:32 → HO.S3 14:18
PROVIDERS: Orthopaedic Surgery; Admitting Provider Physician Assistant; PCP Nurse Practitioner Adult Health; Visit Provider Physician Assistant
PROC: 0RRJ00Z Replacement of Right Shoulder Joint with Reverse Ball and Socket Synthetic Substitute, Open Approach (ICD-10-PCS; CPT 23472; principal; 2024-03-26 11:40)
DX: M19.111 Post-traumatic osteoarthritis, right shoulder (principal); S46.011S Strain of muscle(s) and tendon(s) of the rotator cuff of right shoulder, sequela; X58.XXXS Exposure to other specified factors, sequela; E78.5 Hyperlipidemia, unspecified; G89.18 Other acute postprocedural pain; Z85.3 Personal history of malignant neoplasm of breast; Z86.14 Personal history of Methicillin resistant Staphylococcus aureus infection; Z79.899 Other long term (current) drug therapy
CPT/HCPCS: 23472; 36415; 80048; 85014; 85018; 86850; 86900; 86901; 87640; 87641; 88304; 88311; 88313; C1713; C1776; J0131; J0690; J1100; J1170; J2371; J2405; J2704; J2795; J3010; J7120

== ENCOUNTER → 2024-03-26 09:29 | Outpatient (BNV) | payer MEDICARE, BC, SELFPAY | PROVIDERS: Admitting Provider Physician Assistant; Visit Provider Physician Assistant | DX: M19.011 Primary osteoarthritis, right shoulder (principal); E78.5 Hyperlipidemia, unspecified | CPT/HCPCS: 99222 ==

== ENCOUNTER → 2024-03-26 09:29 | Outpatient (BNV) | payer MEDICARE, BC, SELFPAY | PROVIDERS: Admitting Provider Physician Assistant; Visit Provider Orthopaedic Surgery | DX: M12.811 Other specific arthropathies, not elsewhere classified, right shoulder (principal) | CPT/HCPCS: 23472; 99024; 99212; G0180 ==

== ENCOUNTER 2024-04-10 10:56 | Outpatient (AMB) | payer MEDICARE, BC, SELFPAY ==
--- NOTE | 2024-04-10 11:40 | A.OFFVIS_ITS ---
Intake Visit Reasons: 2 WK PO: 03/26/24 R Reverse TSA w/NE Intake Note: Zainab is an 83 year old female who presents today for a post operative visit s/p right reverse total shoulder arthroplasty scheduled on 03/26/2024?with NE. Patient reports she is doing well, states her pain has been tolerable. Allergies No Known Allergies [No Known Allergies*] Allergy (Verified 04/10/24 12:02) Medication List - Last Reconciled 04/10/24 by Mu Rachel PA-C acetaminophen 650 mg (2 x 325 mg) PO Q6H PRN 30 days aspirin 81 mg PO BID 42 days cetirizine (Zyrtec) 10 mg PO DAILY PRN cholecalciferol (vitamin D3) (Vitamin D3) 25 mcg PO DAILY glucosamine-chondroitin 250-200 mg (Osteo Bi-Flex) 1 tab PO DAILY lactobacillus combination no.4 (Probiotic) 3,000 mmu cells PO DAILY oxycodone 5 mg PO Q4H PRN 7 days rosuvastatin 20 mg PO DAILY HPI HPI 2 WK PO: 03/26/24 R Reverse TSA w/NE: Details: 83-year-old female who returns to the office today for post-op right reverse TSA, 03/26/[address] Wood. She states she has no pain and is doing well overall. She is working on physical therapy with benefits. She has no concerns today. 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 No redness or drainage. NVI. Results Reviewed Results Reviewed: Xrays were obtained in the office today and personally reviewed by me of the right shoulder show intact prosthesis Assessment & Plan Assessment & Plan (1) Rotator cuff arthropathy of right shoulder: Code(s): M12.811 - Other specific arthropathies, not elsewhere classified, right shoulder Category: Medical (2) Status post reverse total replacement of right shoulder: Code(s): Z96.611 - Presence of right artificial shoulder joint Category: Surgical Plan [place] removed, steri strips applied. She will avoid showering for an additional week to ensure healing of incision. She will continue with home PT for another two weeks as she does not have transportation and requires additional home care. She will f/u in 4 weeks, sooner if needed. Orders: Orders XR shoulder RT min 2V Today M25.511 - Pain in right shoulder Patient Instructions: Scribed for Mu Rachel PA-C, by Davin Ma medical device assembler, on 04/10/2024 at 11:30 AM EST.? I, Mu Rachel PA-C, have personally reviewed and agree with the information entered by the scribe. Coding Level of Care Code Global (28069) Diagnoses Rotator cuff arthropathy of right shoulder M12.811 Status post reverse total replacement of right shoulder Z96.611
== END 2024-04-10 12:42 | disposition home or self-care (01) ==
PROVIDERS: PCP Internal Medicine; Visit Provider Physician Assistant
DX: M12.811 Other specific arthropathies, not elsewhere classified, right shoulder (principal); Z96.611 Presence of right artificial shoulder joint
CPT/HCPCS: 99024

== ENCOUNTER 2024-04-10 10:56 | Outpatient (REF) | payer MEDICARE, BC, SELFPAY ==
--- NOTE | ~2024-04-10 | XR_ITS ---
EXAMINATION: XR SHOULDER, RIGHT CLINICAL INFORMATION: Pain in unspecified shoulder. COMPARISON: February 19, 2024 CT shoulder, December 10, 2023 x-ray shoulder. TECHNIQUE: Two views of the right shoulder. FINDINGS: Expected postsurgical changes with tucker and soft tissue swelling identified status post total shoulder prosthesis placement. Hardware appears intact. Diffuse demineralization. Degenerative changes in the acromioclavicular joint. XR/XR shoulder RT min 2V IMPRESSION: Expected postsurgical changes status post total shoulder prosthesis placement.
== END 2024-04-10 10:57 | disposition home or self-care (01) ==
LOC: HO.HOSX 10:56
PROVIDERS: PCP Internal Medicine; Visit Provider Physician Assistant
DX: Z96.611 Presence of right artificial shoulder joint (principal); M12.811 Other specific arthropathies, not elsewhere classified, right shoulder
CPT/HCPCS: 73030; 99212

== ENCOUNTER 2024-05-01 10:00 | Outpatient (AMB) | payer MEDICARE, BC, SELFPAY ==
--- NOTE | 2024-05-01 10:34 | A.OFFVIS_ITS ---
Vital Signs 05/01/24 10:36 Handedness Ambidextrous Intake Visit Reasons: 6WK PO: R Reverse TSA 03/26/24 w/NE Intake Note: Zainab is an 83 year old female who presents today for a post operative visit s/p right reverse total shoulder arthroplasty scheduled on 03/26/2024 with NE. Patient reports she is not having any pains. She feels well she states and would like to know when she can return to driving and remove her sling. Allergies No Known Allergies [No Known Allergies*] Allergy (Verified 05/01/24 10:35) HPI HPI 6WK PO: R Reverse TSA 03/26/24 w/NE: Details: Zainab is an 83 year old female who presents today for a post operative visit s/p right reverse total shoulder arthroplasty scheduled on 03/26/2024 with NE. Patient reports she is not having any pains. She feels well she states and would like to know when she can return to driving and remove her sling. 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
--- NOTE | 2024-05-01 10:48 | MHC.OFFVIS ---
Vital Signs 05/01/24 10:36 Handedness Ambidextrous Intake Visit Reasons: 6WK PO: R Reverse TSA 03/26/24 w/NE Allergies No Known Allergies [No Known Allergies*] Allergy (Verified 05/01/24 10:35) HPI HPI 6WK PO: R Reverse TSA 03/26/24 w/NE: Details: Zainab is 6 weeks status post right reverse total shoulder arthroplasty. She is doing well. She has been compliant with therapy. She has not yet started outpatient physical therapy however. 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 Forward flexion to 60 and abduction to 50 which is better than her contralateral side. Results Reviewed Results Reviewed: I personally reviewed relevant radiographs. Right rTSA in expected post operative position with no hardware complications or evidence of loosening Assessment & Plan Assessment & Plan (1) Status post reverse total replacement of right shoulder: Code(s): Z96.611 - Presence of right artificial shoulder joint Category: Surgical Plan: Status post reverse total shoulder arthroplasty doing well. She may begin outpatient physical therapy. I will see her back in 6 weeks. Orders: Orders XR shoulder RT min 2V Today M25.519 - Pain in unspecified shoulder Coding Level of Care Code Global (49400) Diagnoses Status post reverse total replacement of right shoulder Z96.611
== END 2024-05-01 10:49 | disposition home or self-care (01) ==
PROVIDERS: PCP Internal Medicine; Visit Provider Orthopaedic Surgery
DX: Z96.611 Presence of right artificial shoulder joint (principal)
CPT/HCPCS: 99024

== ENCOUNTER 2024-05-01 10:00 | Outpatient (REF) | payer MEDICARE, BC, SELFPAY ==
--- NOTE | ~2024-05-01 | XR_ITS ---
EXAMINATION: XR SHOULDER, RIGHT CLINICAL INFORMATION: Shoulder pain, recent reverse right shoulder replacement. COMPARISON: 04/10/2024, 03/20/2024. TECHNIQUE: Three views of the right shoulder. FINDINGS: There has been a total reverse right shoulder arthroplasty. Humeral and glenoid components are well seated, in anatomic alignment. No periprosthetic fracture or complication. Mild hypertrophic degenerative changes of the AC joint. Small subacromial spur. Soft tissues and ribs appear normal. Right lung appears clear. XR/XR shoulder RT min 2V IMPRESSION: Postop right shoulder reverse arthroplasty without complication. Electronically signed by: Wander Wolff MD 06/13/2024 05:05 PM EDT
== END 2024-05-01 10:01 | disposition home or self-care (01) ==
LOC: HO.HOSX 10:00
PROVIDERS: PCP Internal Medicine; Visit Provider Orthopaedic Surgery
DX: Z96.611 Presence of right artificial shoulder joint (principal)
CPT/HCPCS: 73030; 99212

== ENCOUNTER → 2024-05-01 10:25 | Outpatient (BNV) | payer MEDICARE, BC, SELFPAY | PROVIDERS: PCP Internal Medicine; Visit Provider Radiology Diagnostic Radiology | DX: Z96.611 Presence of right artificial shoulder joint (principal) | CPT/HCPCS: 73030 ==

== ENCOUNTER 2024-06-10 13:09 | Outpatient (AMB) | payer MEDICARE, BC, SELFPAY ==
--- NOTE | 2024-06-10 13:28 | A.OFFVIS_ITS ---
Vital Signs 06/10/24 13:29 Height 5 ft 3 in Weight 154 lb 1.65 oz BMI 27.3 BP 124/64 Blood Pressure Location Lt brachial Position Sitting Pulse 91 Pulse Source Pulse Oximeter Intake Visit Reasons: Low TSH Intake Note: New patient present today for Low TSH. Production Cost Estimator Required: No Accompanied by: Self / Same As Patient Allergies No Known Allergies [No Known Allergies*] Allergy (Verified 06/10/24 13:34) HPI Comments Details: 83 YO F with who is seen in consultation for suppreseed TSH at the request of PCP. Currently denies any dysphagia or hoarseness of voice. Denies sensation of swelling in the neck or difficulty breathing while lying flat. Denies any tenderness in the neck. Denies any palpitations, tremors, weight loss, frequent bowel movements. Denies any ocular complaints, blurred or double vision. Denies hair loss, dry skin, heat or cold intolerance, weight gain, confusion. Denies any history of head or neck irradiation. Denies any family history of thyroid cancer or thyroid dx . 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 Thyroid gland measure 15 gms . No nodules or tenderness palpated. There is no cervical adenopathy palpated. Lungs CTA. Heart S1, S2 Reg R/R -M/R/G. Abdominal exam benign. Skin exam reveals absence of dryness or thyroid dermopathy or vitiligo. Nail exam reveals absence of thyroid acropachy or oncholysis. Neurologic exam reveals 2+ reflexes . Muscle Strength is 5/5 proximally. There are no tremors in upper extremities. Assessment & Plan Assessment & Plan (1) Low TSH level: Code(s): R79.89 - Other specified abnormal findings of blood chemistry Category: Medical Plan: This is an 83 yo female found to have a slightly low TSH. Appears to be clinically euthyroid. Differential includes spurious low TSH . Pt has negative antibodies for Graves. Will recheck TSH. If TSH.>.3 , pt can f/u with PCP. If TSH remains suppressed will consider further w/u . Will also obtain radioactive uptake and scan pperformed at [facility] Orders: Orders Triiodothyronine T3 Free Today R79.89 - Other specified abnormal findings of blood chemistry Free T4 (Free Thyroxine) Today R79.89 - Other specified abnormal findings of blood chemistry Thyroid Stimulating Hormone Today R79.89 - Other specified abnormal findings of blood chemistry Coding Level of Care Code New Pt Level 4 (06837) Diagnoses Low TSH level R79.89
[2024-06-10 13:29] VITALS: BP 124/64; PULSE 91; BMI 27.3
== END 2024-06-10 14:11 | disposition home or self-care (01) ==
PROVIDERS: PCP Internal Medicine; Visit Provider Internal Medicine Endocrinology, Diabetes & Metabolism
DX: R79.89 Other specified abnormal findings of blood chemistry (principal)
CPT/HCPCS: 99204

== ENCOUNTER → 2024-06-10 13:09 | Outpatient (BNVA) | payer MEDICARE, BC, SELFPAY | PROVIDERS: PCP Internal Medicine; Visit Provider Internal Medicine Endocrinology, Diabetes & Metabolism | DX: R79.89 Other specified abnormal findings of blood chemistry (principal) | CPT/HCPCS: 99202 ==

== ENCOUNTER 2024-06-12 10:15 | Outpatient (AMB) | payer MEDICARE, BC, SELFPAY ==
[2024-06-12 10:18] VITALS: BMI 27.3
--- NOTE | 2024-06-12 10:18 | MHC.OFFVIS ---
Vital Signs 06/12/24 10:18 Height 5 ft 3 in Weight 154 lb BMI 27.3 Intake Visit Reasons: 6WK PO: R Reverse TSA 03/26/24 w/NE Intake Note: Zainab is an 83 year old left hand dominant female who presents today for a post operative appointment s/p Right Reverse TSA 03/26/24. Patient reports that she is doing well, with no concerns. She continues to work with PT, she has about 3/4 sessions left. She will be going to [place] in the next few weeks. Allergies No Known Allergies [No Known Allergies*] Allergy (Verified 06/12/24 10:18) HPI HPI 6WK PO: R Reverse TSA 03/26/24 w/NE: Details: Zainab is an 83 year old left hand dominant female who presents today for a post operative appointment s/p Right Reverse TSA 03/26/24. Patient reports that she is doing well, with no concerns. She continues to work with PT, she has about 3/4 sessions left. She will be going to [place] in the next few weeks. 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) History of right knee joint replacement Family History Mother No known health problems Father Heart problem High cholesterol Social History Household Members: None Housing: House Are you a primary customer care associate to a significant other at home: No Do you presently have visiting nurse or other home services: No Patient Tobacco Use Status: Never used Tobacco service: No Current occupational status: retired Physical Exam Vital Signs: BMI result Body Mass Index 27.3 Extrem Other: 90 degrees of abduction 110 degrees of forward flexion 20 degrees of external rotation IR to hip pocket Assessment & Plan Assessment & Plan (1) Status post reverse total replacement of right shoulder: Code(s): Z96.611 - Presence of right artificial shoulder joint Category: Surgical Plan: Zainab is 83-year-old woman who is very satisfied with her surgery. She has more range of motion and no pain. She is 10 weeks postop. She can return to see me in 3-6 months as needed. We discussed shoulder safe activities. Coding Level of Care Code Global (42782) Diagnoses Status post reverse total replacement of right shoulder Z96.611
== END 2024-06-12 11:50 | disposition home or self-care (01) ==
PROVIDERS: PCP Internal Medicine; Visit Provider Orthopaedic Surgery
DX: Z96.611 Presence of right artificial shoulder joint (principal)
CPT/HCPCS: 99024

== ENCOUNTER → 2024-06-12 10:15 | Outpatient (BNVA) | payer MEDICARE, BC, SELFPAY | PROVIDERS: PCP Internal Medicine; Visit Provider Orthopaedic Surgery | DX: Z47.1 Aftercare following joint replacement surgery (principal); Z96.611 Presence of right artificial shoulder joint | CPT/HCPCS: 99212 ==

== ENCOUNTER 2024-06-24 13:50 | Outpatient (REF) | payer MEDICARE, BC, SELFPAY ==
[2024-06-24 17:22] LABS: Free T4 (Free Thyroxine) 0.88 ng/dL (0.71-1.85); Thyroid Stimulating Hormone 0.38 uIU/mL (0.32-4.0)
[2024-06-25 10:33] LABS: Triiodothyronine T3 Free 3.4 pg/mL (2.3-4.2)
== END 2024-06-24 13:51 | disposition home or self-care (01) ==
LOC: HO.HMGCLDS 13:50
PROVIDERS: PCP Internal Medicine; Visit Provider Internal Medicine Endocrinology, Diabetes & Metabolism
DX: R79.89 Other specified abnormal findings of blood chemistry (principal)
CPT/HCPCS: 36415; 84439; 84443; 84481

== ENCOUNTER 2024-07-17 12:42 | Outpatient (AMB) | payer MEDICARE, BC, SELFPAY ==
[2024-07-17 12:44] VITALS: BP 158/78; PULSE 73; BMI 27.6
--- NOTE | 2024-07-17 12:44 | A.OFFVIS_ITS ---
Vital Signs 3 07/17/24 12:44 Height 5 ft 3 in Weight 156 lb 1.396 oz BMI 27.6 BP 158/78 H Blood Pressure Location Lt brachial Position Sitting Pulse 73 Pulse Source Pulse Oximeter Intake Visit Reasons: Thyroid Intake Note: Patient present today for Thyroid follow up visit. 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 Accompanied by: Self / Same As Patient Allergies No Known Allergies [No Known Allergies*] Allergy (Verified 07/17/24 12:48) Medication List - Last Reconciled 07/17/24 by Nadya Stewart MD acetaminophen 650 mg (2 x 325 mg) PO Q6H PRN 30 days aspirin 81 mg PO BID 42 days cetirizine (Zyrtec) 10 mg PO DAILY PRN cholecalciferol (vitamin D3) (Vitamin D3) 25 mcg PO DAILY glucosamine-chondroitin 250-200 mg (Osteo Bi-Flex) 1 tab PO DAILY lactobacillus combination no.4 (Probiotic) 3,000 mmu cells PO DAILY rosuvastatin 20 mg PO DAILY HPI Comments Details: 83 YO F with who is seen for follow up of low TSH . She was noted to have a TSH level of 0.35, with normal free T4 0.97 in February 2024. TR AB. Antibody levels was negative. Subsequently labs repeated in June 2024 showed TSH normalized at 0.38 though still at the lower limit of normal, free T4 normal at 0.88 and normal free T3 of 3.4. She had a thyroid uptake and scan May 2024 which showed asymmetrically increased uptake in the right lobe with decreased uptake in the left lobe. In addition to that she was also noted to have decreased uptake in the right upper lobe concerning for cold nodule. No thyroid ultrasound in the system. Currently denies any dysphagia or hoarseness of voice. Denies sensation of swelling in the neck or difficulty breathing while lying flat. Denies any tenderness in the neck. Denies any palpitations, tremors, weight loss, frequent bowel movements. Denies any ocular complaints, blurred or double vision. Denies hair loss, dry skin, heat or cold intolerance, weight gain, confusion. Denies any history of head or neck irradiation. Denies any family history of thyroid cancer Half sister has some thyroid problem . No use of kelp or seaweed or biotin Review of systems Constitutional: no fevers, chills or weight loss HEENT: no changes in vision Cardiac: No chest pain, discomfort or palpitations. Pulmonary: No SOB GI:No abdominal pain, no nausea or vomiting, no anorexia, no blood in stool : no burning micturition, dysuria or increase in urinary frequency Physical exam General: sitting comfortably in no acute distress HEENT: normocephalic/atraumatic, moist oral mucosa Neck: supple, symmetrical, no thyromegaly , no dorsocervical or supraclavicular fat pads Cardiac: normal heart sounds Pulm: normal breath sounds B/L, no added breath sounds Abd: not distended, no tenderness Extremities: no edema, no signs of myxedema Neuro: AAO x3, Speech: normal, no facial droop, moving all 4 extremities [facility] Medical History (Updated 07/17/24 @ 13:21 by Nadya Stewart MD) Subclinical hyperthyroidism Low TSH level History of MRSA infection Osteoarthritis Left humeral fracture Breast cancer Hyperlipemia Surgical History History of shoulder replacement H/O colonoscopy History of lumpectomy of left breast Hx of tonsillectomy 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) History of right knee joint replacement Family History Mother No known health problems Father Heart problem High cholesterol Social History Household Members: None Housing: House Are you a primary daycare provider to a significant other at home: No Do you presently have visiting nurse or other home services: No Patient Tobacco Use Status: Never used Tobacco service: No Current occupational status: retired Physical Exam Vital Signs: Last Vital Signs Pulse 73 07/17/24 12:44 BP 158/78 H 07/17/24 12:44 BMI result Body Mass Index 27.6 Results Reviewed Results Reviewed: Laboratory Tests 06/24/24 13:54 TSH 0.38 Free T4 0.88 Free T3 3.4 Assessment & Plan Assessment & Plan (1) Subclinical hyperthyroidism: Code(s): E05.90 - Thyrotoxicosis, unspecified without thyrotoxic crisis or storm Category: Medical Plan: 83 YO F with who is seen for follow up of low TSH of 0.35, with normal free T4 0.97 in February 2024. Consistent with subclinical hyperthyroidism. TR AB. Antibody levels was negative. Most common differential is toxic multinodular goiter, though also could possibly be seronegative Graves disease. However unlikely given she does not have a goiter.She had a thyroid uptake and scan May 2024 which showed asymmetrically increased uptake in the right lobe with decreased uptake in the left lobe. In addition to that she was also noted to have decreased uptake in the right upper lobe concerning for cold nodule. No thyroid ultrasound in the system. labs repeated in June 2024 showed TSH normalized at 0.38 though still at the lower limit of normal, free T4 normal at 0.88 and normal free T3 of 3.4. Given asymmetrical uptake on the uptake and scan, consistent with having toxic nodules. I will obtain a thyroid ultrasound especially since there is suspicion for possibly a cold nodule in the right upper lobe that might need a biopsy. She does not have any compressive symptoms. I explained that it is common to have thyroid nodules. About 95% of the time these nodules are benign. However if the nodule is > 1 cm in size or suspicious on ultrasound then a fine need aspiration biopsy is recommended. Given her age she will also meet treatment criteria for subclinical hyperthyroidism, however her most recent labs are normal, hence we will repeat a set of blood work in 2 months. If these repeat labs are also normal, she can have annual thyroid function testing done. I also counseled her about symptoms of hyperthyroidism and to do blood work sooner if those happen. I will have her follow up in 2 months with repeat TFTs, Plan: -ordered thyroid ultrasound -ordered TSH, free T4, TSI levels -follow up in 2 months Plan I spent 30 minutes in reviewing the record, seeing the patient and documenting in the medical record. Orders: Orders 2 Thyroid Stimulating Hormone 3 Months R7.89 - Other specified abnormal findings of blood chemistry Free T4 (Free Thyroxine) 3 Months R7.89 - Other specified abnormal findings of blood chemistry Thyroid Stimulating Immunoglob 3 Months R7.89 - Other specified abnormal findings of blood chemistry Triiodothyronine T3 Total 3 Months R7. - Other specified abnormal findings of blood chemistry US thyroid Today R7. - Other specified abnormal findings of blood chemistry Patient Instructions: Please do thyroid ultrasound, somebody we will call you to schedule this. Do labs 3-4 days prior to your next visit in 2 months, orders have already been placed. Coding Level of Care Code Est Pt Level 4 (25480) Diagnoses Subclinical hyperthyroidism E05.90 Time Spent (min) 30
== END 2024-07-17 13:16 | disposition home or self-care (01) ==
PROVIDERS: PCP Internal Medicine; Visit Provider Student in an Organized Health Care Education/Training Program
DX: E05.90 Thyrotoxicosis, unspecified without thyrotoxic crisis or storm (principal)
CPT/HCPCS: 99214

== ENCOUNTER → 2024-07-17 12:42 | Outpatient (BNVA) | payer MEDICARE, BC, SELFPAY | PROVIDERS: PCP Internal Medicine; Visit Provider Student in an Organized Health Care Education/Training Program | DX: E05.90 Thyrotoxicosis, unspecified without thyrotoxic crisis or storm (principal); R79.89 Other specified abnormal findings of blood chemistry | CPT/HCPCS: 99212 ==

== ENCOUNTER 2024-07-29 13:15 | Outpatient (REF) | payer MEDICARE, BC, SELFPAY | END 2024-07-29 13:16 | disposition home or self-care (01) | LOC: HO.US 13:15 | PROVIDERS: PCP Internal Medicine; Visit Provider Student in an Organized Health Care Education/Training Program | DX: R79.89 Other specified abnormal findings of blood chemistry (principal) | CPT/HCPCS: 76536 ==

== ENCOUNTER 2024-09-18 10:38 | Outpatient (REF) | payer MEDICARE, BC, SELFPAY ==
--- OUTSIDE RECORDS SUMMARY | 2024-09-18 10:41 | XMS_ITS | Clinical Summary ---
Author Organization Unknown Care Team Providers Care Stemmer Machine Name Role Phone SABRA MAZA, SAMMY Unavailable Unavailable DWAYNE PT, BERNARDINO Unavailable Unavailable Payers Payer Name Policy Type Policy Number Effective Date Expira tion Date MEDICARE - [place] - PD [id number] [facility] [id number] Problems Condition Name Condition Details Condition Category Status Onset Date Resolution Date Last Treatment Date Treating Clinician Comments ANTERIOR SUBLUXATION OF RIGHT HUMERUS, SUBSEQUENT ENCOUNTER Active 10-01 00:00: 00 HYPERLIPIDEM IA, UNSPECIFIED Active 10-01 00:00: 00 ANXIETY DISORDER, UNSPECIFIED Active 10-01 00:00: 00 PERSONAL HISTORY OF MALIGNANT NEOPLASM OF BREAST Active 10-01 00:00: 00 HISTORY OF FALLING Active 10-01 00:00: 00 Allergies, Adverse Reactions, Alerts Allergy Name Allergy Type Status Severity Reaction(s) Onset Date Inactive Date Treating Clinician Comments NKA Propensity to adverse reactions Active 2023-09 12:03:1 5 Medications Ordered Medication Name Filled Medication Name Start Date Stop Date Current Medication? Ordering Clinician Indication Dosage Frequency Signature (SIG) Comments Components docusate sodium 100 mg capsule 2022-09 2 00:00: 00 03-25 23:59 :00 No [id number] Per instruc tions TWICE A DAY Per instructio ns TWICE A DAY (route: oral) Med Classific ation: Gastroint estinal Therapy Agents ondansetron 4 mg disintegrat ing tablet 2022-09 2- 00:00: 00 03-25 23:59 :00 No [id number] 1 tablet 4 TIMES A WEEK 1 tablet 4 TIMES A WEEK (route: oral) Med Classific ation: Gastroint estinal Therapy Agents Osteo Bi-Flex 250 mg-200 mg tablet 09-24 00:00: 00 03-25 23:59 :00 No [id number] 1 tablet DAILY 1 tablet DAILY (route: oral) Med Classific ation: Alternati ve Therapy oxycodone 10 mg tablet 2022-09 2- 00:00: 00 03-25 23:59 :00 No [id number] 5 mg 4 TIMES A WEEK 5 mg 4 TIMES A WEEK (route: oral) Med Classific ation: Analgesic , Anti-infl ammatory or Antipyret ic Probiotic Acidophilus 250 million cell capsule 09-24 00:00: 00 03-25 23:59 :00 No [id number] 1 capsule DAILY 1 capsule DAILY (route: oral) Med Classific ation: Gastroint estinal Therapy Agents rosuvastati n 20 mg tablet 09-24 00:00: 00 03-25 23:59 :00 No [id number] 1 tablet DAILY 1 tablet DAILY (route: oral) Med Classific ation: Cardiovas cular Therapy Agents Vitamin D3 10 mcg (400 unit) capsule 09-24 00:00: 00 03-25 23:59 :00 No [id number] 1 capsule DAILY 1 capsule DAILY (route: oral) Med Classific ation: Electroly te Balance-N utritiona l Products Vital Signs Vital Name Observation Time Observation Value Commen ts Temperature 2023-10-29 09:00:00.000 97.4 [degF] Temperature 2023 10:00:00.000 97.4 [degF] Temperature 2023-10-22 10:00:00.000 97.4 [degF] Temperature 2023-10-17 10:00:00.000 97.8 [degF] Temperature 2023-10-15 10:00:00.000 97 [degF] Temperature 2023-10-10 10:00:00.000 97.2 [degF] Temperature 2023-10-08 10:30:00.000 97.4 [degF] Temperature 2023-10-03 12:15:00.000 97.2 [degF] Temperature 2023-10-01 13:15:00.000 97.2 [degF] Height 2023-10-02 09:21:35.000 62 [in_us] Pulse 2023-10-29 09:00:00.000 88 /min Pulse 2023 10:00:00.000 84 /min Pulse 2023-10-22 10:00:00.000 88 /min Pulse 2023-10-17 10:00:00.000 84 /min Pulse 2023-10-15 10:00:00.000 88 /min Pulse 2023-10-10 10:00:00.000 84 /min Pulse 2023-10-08 10:30:00.000 84 /min Pulse 2023-10-03 12:15:00.000 86 /min Pulse 2023-10-01 13:15:00.000 88 /min Respirations 2023-10-29 09:00:00.000 17 /min Respirations 2023 10:00:00.000 18 /min Respirations 2023-10-22 10:00:00.000 18 /min Respirations 2023-10-17 10:00:00.000 18 /min Respirations 2023-10-15 10:00:00.000 18 /min Respirations 2023-10-10 10:00:00.000 18 /min Respirations 2023-10-08 10:30:00.000 18 /min Respirations 2023-10-03 12:15:00.000 18 /min Respirations 2023-10-01 13:15:00.000 18 /min Systolic Blood Pressure 2023-10-29 09:00:00.000 126 mm [Hg] Systolic Blood Pressure 2023 10:00:00.000 128 mm [Hg] Systolic Blood Pressure 2023-10-22 10:00:00.000 130 mm [Hg] Systolic Blood Pressure 2023-10-17 10:00:00.000 126 mm [Hg] Systolic Blood Pressure 2023-10-15 10:00:00.000 130 mm [Hg] Systolic Blood Pressure 2023-10-10 10:00:00.000 130 mm [Hg] Systolic Blood Pressure 2023-10-08 10:30:00.000 130 mm [Hg] Systolic Blood Pressure 2023-10-03 12:15:00.000 138 mm [Hg] Systolic Blood Pressure 2023-10-01 13:15:00.000 140 mm [Hg] Diastolic Blood Pressure 2023-10-29 09:00:00.000 78 mm [Hg] Diastolic Blood Pressure 2023 10:00:00.000 78 mm [Hg] Diastolic Blood Pressure 2023-10-22 10:00:00.000 80 mm [Hg] Diastolic Blood Pressure 2023-10-17 10:00:00.000 82 mm [Hg] Diastolic Blood Pressure 2023-10-15 10:00:00.000 84 mm [Hg] Diastolic Blood Pressure 2023-10-10 10:00:00.000 84 mm [Hg] Diastolic Blood Pressure 2023-10-08 10:30:00.000 78 mm [Hg] Diastolic Blood Pressure 2023-10-03 12:15:00.000 84 mm [Hg] Diastolic Blood Pressure 2023-10-01 13:15:00.000 84 mm [Hg] Plan of Treatment Planned Activity Planned Date Details Comments Future Scheduled Test PHYSICAL T HERAPIST TO EVALUATE PATIENT SECONDARY TO FUNCTIONAL DEFICITS/SAFETY CONCERNS. [code = PHYSICAL THERAPIST TO EVALUATE PATIENT SECONDARY TO FUNCTIONAL DEFICITS/SAFETY CONCERNS.] Future Scheduled Test PHYSICAL T HERAPIST TO ASSESS BEST PRACTICE INTERVENTIONS TO ASSIST PATIENTS TO IMPROVE OR STABILIZE MEDICAL STATUS AND PREVENT RE-HOSPITALIZATION. MEASURES INCLUDING REVIEW AND IDENTIFICATION OF CONCERNS FOR THE FOLLOWING AREAS:DEPRESSION, DRUG REGIMEN, ENVIRONMENTAL SAFETY ISSUES AND FALLS, PRESSURE ULCERS, PAIN, AND DISEASE MANAGEMENT. [code = PHYSICAL THERAPIST TO ASSESS BEST PRACTICE INTERVENTIONS TO ASSIST PATIENTS TO IMPROVE OR STABILIZE MEDICAL STATUS AND PREVENT RE-HOSPITALIZATION. MEASURES INCLUDING REVIEW AND IDENTIFICATION OF CONCERNS FOR THE FOLLOWING AREAS:DEPRESSION, DRUG REGIMEN, ENVIRONMENTAL SAFETY ISSUES AND FALLS, PRESSURE ULCERS, PAIN, AND DISEASE MANAGEMENT.] Future Scheduled Test PHYSICAL T HERAPY TO ESTABLISH /UPGRADE/DOWNGRADE THERAPEUTIC EXERCISE PROGRAM AND INSTRUCT PATIENT/CAREGIVER ON EXERCISE PRECAUTIONS WITH WRITTEN HOME PROGRAM. MAY INCLUDE PROM, AAROM, AROM, RROM APPROPRIATE TO IMPROVE FUNCTIONAL STRENGTH AND RANGE OF MOTION. [code = PHYSICAL THERAPY TO ESTABLISH /UPGRADE/DOWNGRADE THERAPEUTIC EXERCISE PROGRAM AND INSTRUCT PATIENT/CAREGIVER ON EXERCISE PRECAUTIONS WITH WRITTEN HOME PROGRAM. MAY INCLUDE PROM, AAROM, AROM, RROM APPROPRIATE TO IMPROVE FUNCTIONAL STRENGTH AND RANGE OF MOTION.] Future Scheduled Test PHYSICAL T HERAPY TO INSTRUCT PATIENT/CAREGIVER ON GAIT TRAINING TECHNIQUES USING APPROPRIATE ASSISTIVE DEVICE, PROPER BODY MECHANICS TO IMPROVE MOBILITY, AND PREVENT INJURY OF PATIENT AND/OR CAREGIVER. [code = PHYSICAL THERAPY TO INSTRUCT PATIENT/CAREGIVER ON GAIT TRAINING TECHNIQUES USING APPROPRIATE ASSISTIVE DEVICE, PROPER BODY MECHANICS TO IMPROVE MOBILITY, AND PREVENT INJURY OF PATIENT AND/OR CAREGIVER.] Future Scheduled Test PHYSICAL T HERAPY TO ASSESS AND RECOMMEND HOME SAFETY ADAPTATIONS AND EDUCATE PATIENT /CAREGIVER ON FALL PREVENTION STRATEGIES. [code = PHYSICAL THERAPY TO ASSESS AND RECOMMEND HOME SAFETY ADAPTATIONS AND EDUCATE PATIENT /CAREGIVER ON FALL PREVENTION STRATEGIES.] Future Scheduled Test PHYSICAL T HERAPY FOR OBSERVATION AND ASSESSMENT OF PAIN, EFFECTIVENESS OF PAIN MANAGEMENT REGIMEN AND SKILLED TEACHING RELATED TO PAIN MANAGEMENT. THERAPIST TO REPORT INCREASED PAIN LEVEL TO PHYSICIAN FOR PROMPT INTERVENTION. [code = PHYSICAL THERAPY FOR OBSERVATION AND ASSESSMENT OF PAIN, EFFECTIVENESS OF PAIN MANAGEMENT REGIMEN AND SKILLED TEACHING RELATED TO PAIN MANAGEMENT. THERAPIST TO REPORT INCREASED PAIN LEVEL TO PHYSICIAN FOR PROMPT INTERVENTION.] Future Scheduled Test SUMMARY OF THERAPY EVAL/ASSESSMENT FINDINGS AND REASON(S) SKILLS OF A THERAPIST ARE INDICATED: [id number] PHYSICAL THERAPY EVALUATION COMPLETED. PATIENT IS A 82 YO FEMALE SP ER VISIT DUE TO RECENT FALLS WITH R SHOULDER DISLOCATION AND REDUCTION AFTER FALL AT HOME IN BATHROOM. PMHX FALL A FEW MONTHS AGO WITH L SHOULDER FRACTURE, R TOTAL KNEE REPLACEMENT X3. PATIENT LIVES ALONE IN 2 STORY HOME WITH STAIR LIFT TO ENTER MAIN LEVEL. HER SPOUSE 6 MONTHS AGO AND HER BROTHER IS CURRENTLY STAYING WITH HER TO ASSIST. VITAL SIGNS ARE STABLE, PAIN IN R SHOULDER 5/10 WITH NO ROM, HOSPITAL RECOMMENDATIONS TO WEAR SLING X3 WEEK WHICH SHE IS NOT DOING. SHE HAS AN APPOINTMENT WITH DR. KEITH-ÁLVARO TOMORROW FOR INSTRUCTIONS ON PROTOCOL. LUE LIMITED TO 60 DEGREES FLEXION, 15 ABDUCTION. BLE STRENGTH 4/5 GROSSLY. BED MOBILITY INDEPENDENT WITH DIFFICULTY, MIN A WITH TRANSFERS USING CHAIR LIFT AND RAISED TODAY SEAT. GAIT WITHOUT DEVICE ON EVEN SURFACES X25FT WITH SHUFFLING GATE DECREASED BILATERAL ARM SWING AND FORWARD FLEXED POSTURE. PATIENT ABLE TO DRESS UE LE USING EMBROIDERY CUTTER HOWEVER WITH DIFFICULTY. DYNAMIC STAND BALANCE TUG SCORE IS 18 SECONDS INDICATING A FALL RISK. PATIENT IS CURRENTLY HOMEBOUND AND REQUIRES PHYSICAL ASSIST TO LEAVE HOME FOR MEDICAL APPOINTMENTS. PATIENT IS AGREEABLE TO PHYSICAL THERAPY INTERVENTION 2X A WEEK. [code = SUMMARY OF THERAPY EVAL/ASSESSMENT FINDINGS AND REASON(S) SKILLS OF A THERAPIST ARE INDICATED: [id number] PHYSICAL THERAPY EVALUATION COMPLETED. PATIENT IS A 82 YO FEMALE SP ER VISIT DUE TO RECENT FALLS WITH R SHOULDER DISLOCATION AND REDUCTION AFTER FALL AT HOME IN BATHROOM. PMHX FALL A FEW MONTHS AGO WITH L SHOULDER FRACTURE, R TOTAL KNEE REPLACEMENT X3. PATIENT LIVES ALONE IN 2 STORY HOME WITH STAIR LIFT TO ENTER MAIN LEVEL. HER SPOUSE 6 MONTHS AGO AND HER BROTHER IS CURRENTLY STAYING WITH HER TO ASSIST. VITAL SIGNS ARE STABLE, PAIN IN R SHOULDER 5/10 WITH NO ROM, HOSPITAL RECOMMENDATIONS TO WEAR SLING X3 WEEK WHICH SHE IS NOT DOING. SHE HAS AN APPOINTMENT WITH DR. KEITH-ORTHO TOMORROW FOR INSTRUCTIONS ON PROTOCOL. LUE LIMITED TO 60 DEGREES FLEXION, 15 ABDUCTION. BLE STRENGTH 4/5 GROSSLY. BED MOBILITY INDEPENDENT WITH DIFFICULTY, MIN A WITH TRANSFERS USING CHAIR LIFT AND RAISED TODAY SEAT. GAIT WITHOUT DEVICE ON EVEN SURFACES X25FT WITH SHUFFLING GATE DECREASED BILATERAL ARM SWING AND FORWARD FLEXED POSTURE. PATIENT ABLE TO DRESS UE LE USING EMBROIDERY CUTTER HOWEVER WITH DIFFICULTY. DYNAMIC STAND BALANCE TUG SCORE IS 18 SECONDS INDICATING A FALL RISK. PATIENT IS CURRENTLY HOMEBOUND AND REQUIRES PHYSICAL ASSIST TO LEAVE HOME FOR MEDICAL APPOINTMENTS. PATIENT IS AGREEABLE TO PHYSICAL THERAPY INTERVENTION 2X A WEEK. ] Goal 2023-10-29 Patient Goal - RETURN TO FUN CTIONAL BUE Goal Provider Goal - PHYSICAL THERAPY EVALUATION TO BE COMPLETED WITH RECOMMENDATIONS AND/OR WRITTEN TREATMENT PLAN OF CARE ESTABLISHED FOR THE PHYSICIANS SIGNATURE Goal Provider Goal - PATIENT/CAREGIVER VERBALIZES UNDERSTANDING OF THE INITIAL BEST PRACTICE RECOMMENDATIONS. PHYSICIAN TO BE NOTIFIED APPROPRIATE FOR ANY CHANGES OR COMPLICATIONS THROUGHOUT THE CERTIFICATION PERIOD. Goal Provider Goal - PATIENT/CAREGIVER WILL PERFORM THERAPEUTIC EXERCISE/S AND DEMONSTRATE PARTICIPATION IN A HOME PROGRAM TO IMPROVE FUNCTION OF UE FUNYION, GAIT AND TRANSFERS BY [id number] Goal Provider Goal - PATIENT/CAREGIVER WILL DEMONSTRATE IMPROVED GAIT TECHNIQUES TO MINIMIZE RISK OF INJURY AND INCREASE FUNCTION OF GAIT ON EVEN AND UNEVEN SURFACES FOR COMMUNITY DISTANCES BY [id number] Goal Provider Goal - PATIENT/CAREGIVER WILL DEMONSTRATE/VERBALIZE UNDERSTANDING OF RECOMMENDATIONS TO INCREASE SAFETY IN THE HOME AND FALL PREVENTION TO IMPROVE FUNCTION OF TRANSFERS AND GAIT BY [id number] Goal Provider Goal - INCREASED PAIN OR INEFFECTIVE PAIN CONTROL MEASURES WILL BE IDENTIFIED AND PROMPTLY REPORTED TO THE PHYSICIAN. PATIENT/CAREGIVER WILL DEMONSTRATE EFFECTIVE PAIN MANAGEMENT TO IMPROVE FUNCTION OF BILATERAL SHOULDER PAIN TO 0-2/10 BY [id number] Goal Provider Goal - Reason for Visit INDEPENDENT IN THE HOME Encounters Start Date/Time End Date/Time Encounter Type Admission Type Attending [facility] Care [facility] Care Department Encounter ID Discharge Date Discharge Status Discharge Condition Discharge Reason Percent Goals Met 2023-10-01 00:00:00 2023-10-29 00:00:00 Outpatient NEW ADMISSION BERNARDINO RICE [facility] [id number] 2023-10-29 00:00:00 DISCHARGE TO HOME OR SELF CARE INDEPENDEN T IN THE HOME MOVED OUT OF SERVICE AREA 44.44
[2024-09-18 13:52] LABS: Free T4 (Free Thyroxine) 0.96 ng/dL (0.71-1.85); Thyroid Stimulating Hormone 0.37 uIU/mL (0.32-4.0)
[2024-09-19 09:38] LABS: Triiodothyronine T3 Total 117 ng/dL (76-181)
[2024-09-25 15:08] LABS: Thyroid Stimulating Immunoglob <89 % baseline (<140)
== END 2024-09-18 10:39 | disposition home or self-care (01) ==
LOC: HO.HMGCLDS 10:38
PROVIDERS: PCP Internal Medicine; Visit Provider Student in an Organized Health Care Education/Training Program
DX: R79.89 Other specified abnormal findings of blood chemistry (principal)
CPT/HCPCS: 36415; 84439; 84443; 84445; 84480

== ENCOUNTER 2024-09-22 12:19 | Outpatient (AMB) | payer MEDICARE, BC, SELFPAY ==
[2024-09-22 12:20] VITALS: BP 130/76; PULSE 62; BMI 28.0
--- NOTE | 2024-09-22 12:20 | MHC.OFFVIS ---
Vital Signs 09/22/24 12:20 Height 5 ft 3 in Weight 158 lb 1.143 oz BMI 28.0 BP 130/76 Blood Pressure Location Lt brachial Position Sitting Pulse 62 Pulse Source Pulse Oximeter Intake Visit Reasons: Thyroid Intake Note: Patient present today for thyroid office visit. 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 HPI She was noted to have a TSH level of 0.35, with normal free T4 0.97 in February 2024. TR AB. Antibody levels was negative. Subsequently labs repeated in June 2024 showed TSH normalized at 0.38 though still at the lower limit of normal, free T4 normal at 0.88 and normal free T3 of 3.4. She had a thyroid uptake and scan May 2024 which showed asymmetrically increased uptake in the right lobe with decreased uptake in the left lobe. In addition to that she was also noted to have decreased uptake in the right upper lobe concerning for cold nodule. Interval history 09/18/2024 again showed absolutely normal thyroid function with normal TSH, normal free T4 and total T3. TSH is just at the borderline of normal lower range, however still everything else is normal. She also had an ultrasound of her thyroid 07/29/2024, report not yet finalized but I reviewed the images, which shows an atrophic left side, shows a large 6 cm right-sided thyroid nodule which is solid, isoechoic, well-circumscribed , no punctate echogenic foci. This is a TR 3 nodule. Per EDA guidelines this is a low suspicion nodule with a 5-10% chance of malignancy. However given size meets criteria for FNA. 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 Currently denies any dysphagia or hoarseness of voice. Denies sensation of swelling in the neck or difficulty breathing while lying flat. Denies any tenderness in the neck. Denies any palpitations, tremors, weight loss, frequent bowel movements. Denies any ocular complaints, blurred or double vision. Denies hair loss, dry skin, heat or cold intolerance, weight gain, confusion. Denies any history of head or neck irradiation. Denies any family history of thyroid cancer Half sister has some thyroid problem . No use of kelp or seaweed , stopped biotin use before doing labs. Review of systems Constitutional: no fevers, chills or weight loss HEENT: no changes in vision Cardiac: No chest pain, discomfort or palpitations. Pulmonary: No SOB GI:No abdominal pain, no nausea or vomiting, no anorexia, no blood in stool : no burning micturition, dysuria or increase in urinary frequency Physical exam General: sitting comfortably in no acute distress HEENT: normocephalic/atraumatic, moist oral mucosa Neck: supple, palpable 3-4 cm right-sided thyroid nodule , no dorsocervical or supraclavicular fat pads Cardiac: normal heart sounds Pulm: normal breath sounds B/L, no added breath sounds Abd: not distended, no tenderness Extremities: no edema, no signs of myxedema Neuro: AAO x3, Speech: normal, no facial droop, moving all 4 extremities 06/24/24 13:54 TSH 0.38 Free T4 0.88 Free T3 3.4 Laboratory Tests 06/24/24 09/18/24 13:54 10:42 TSH 0.38 0.37 Free T4 0.88 0.96 Free T3 3.4 Total T3 117 PFSH Medical History (Updated 09/22/24 @ 12:48 by Nadya Stewart MD) Right thyroid nodule Subclinical hyperthyroidism Low TSH level History of MRSA infection Osteoarthritis Left humeral fracture Breast cancer Hyperlipemia Surgical History History of shoulder replacement H/O colonoscopy History of lumpectomy of left breast Hx of tonsillectomy 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) History of right knee joint replacement Family History Mother No known health problems Father Heart problem High cholesterol Social History Household Members: None Housing: House Are you a primary emergency care tech to a significant other at home: No Do you presently have visiting nurse or other home services: No Patient Tobacco Use Status: Never used Tobacco service: No Current occupational status: retired Assessment & Plan Assessment & Plan (1) Right thyroid nodule: Code(s): E04.1 - Nontoxic single thyroid nodule Category: Medical (2) Subclinical hyperthyroidism: Code(s): E05.90 - Thyrotoxicosis, unspecified without thyrotoxic crisis or storm Category: Medical Plan: 83 YO F with who is seen for follow up of low TSH of 0.35, with normal free T4 0.97 in February 2024. Consistent with subclinical hyperthyroidism. TR AB. Antibody levels was negative. Most common differential is toxic multinodular goiter, though also could possibly be seronegative Graves disease. However unlikely given she does not have a goiter.She had a thyroid uptake and scan May 2024 which showed asymmetrically increased uptake in the right lobe with decreased uptake in the left lobe. In addition to that she was also noted to have decreased uptake in the right upper lobe concerning for cold nodule. labs repeated in June 2024 showed TSH normalized at 0.38 though still at the lower limit of normal, free T4 normal at 0.88 and normal free T3 of 3.4. Given asymmetrical uptake on the uptake and scan, consistent with having toxic nodules. I will obtain a thyroid ultrasound especially since there is suspicion for possibly a cold nodule in the right upper lobe that might need a biopsy. She does not have any compressive symptoms. 09/18/2024 again showed absolutely normal thyroid function with normal TSH, normal free T4 and total T3. TSH is just at the borderline of normal lower range, however still everything else is normal. She also had an ultrasound of her thyroid 07/29/2024, report not yet finalized but I reviewed the images, which shows an atrophic left side, shows a large 6 cm right-sided thyroid nodule which is solid, isoechoic, well-circumscribed , no punctate echogenic foci. This is a TR 3 nodule. Per EDA guidelines this is a low suspicion nodule with a 5-10% chance of malignancy. However given size meets criteria for FNA. 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 I explained that it is common to have thyroid nodules. About 95% of the time these nodules are benign. However if the nodule is > 1 cm in size or suspicious on ultrasound then a fine need aspiration biopsy is recommended. We discussed that a FNAB involves 4-5 passes with a small gauge needle and material obtained is sent off for cytology.If the cytopathology is benign then the nodule will be followed annually with repeat ultrasounds. However if it is suspicious or malignant, we will need to discuss further management. Indeterminate cytology can be further investigated with repeat FNA, genetic testing or empiric lobectomy. Malignant cytology is managed with either lobectomy or total thyroidectomy. We discussed briefly that thyroid cancer is, in most patients, an indolent disease that does not affect mortality. We will arrange for FNA of the right-sided 6 cm thyroid nodule at next available opening and patient will follow up with me in clinic thereafter for results and further decision making. Given her age she will also meet treatment criteria for subclinical hyperthyroidism, however her most recent labs are normal, hence we will repeat a set of blood work in 4 months. If these repeat labs are also normal, she can have annual thyroid function testing done. I also counseled her about symptoms of hyperthyroidism and to do blood work sooner if those happen. Plan: -scheduled for right-sided 6 cm thyroid nodule biopsy and follow up 1 week after to discuss results -TSH, free T4, total T3 to be repeated in 4 months Plan I spent 30 minutes in reviewing the record, seeing the patient and documenting in the medical record. Orders: Orders US biopsy thyroid Today E04.1 - Nontoxic single thyroid nodule Thyroid Stimulating Hormone 4 Months E04.1 - Nontoxic single thyroid nodule, E05.90 - Thyrotoxicosis, unspecified without thyrotoxic crisis or storm Free T4 (Free Thyroxine) 4 Months E04.1 - Nontoxic single thyroid nodule, E05.90 - Thyrotoxicosis, unspecified without thyrotoxic crisis or storm Triiodothyronine T3 Total 4 Months E04.1 - Nontoxic single thyroid nodule, E05.90 - Thyrotoxicosis, unspecified without thyrotoxic crisis or storm Patient Instructions: We will book you for a right sided thyroid biopsy on 10/15/24 and a follow up on 10/22/24 Coding Level of Care Code Est Pt Level 4 (63986) Diagnoses Right thyroid nodule E04.1 Subclinical hyperthyroidism E05.90 Time Spent (min) 30
--- OUTSIDE RECORDS SUMMARY | 2024-09-22 12:21 | XMS_ITS | Clinical Summary ---
Author Organization Unknown Care Team Providers Care Percher Name Role Phone SABRA MAZA, SAMMY Unavailable Unavailable DWAYNE PT, BERNARDINO Unavailable Unavailable Payers Payer Name Policy Type Policy Number Effective Date Expira tion Date MEDICARE - NGS ID/IA - PD [id number] [facility] [id number] Problems Condition Name Condition Details Condition Category [...] 2 00:00: 00 03-25 23:59 :00 No [id number] Per instruc tions TWICE A DAY Per instructio ns TWICE A DAY (route: oral) Med Classific ation: Gastroint estinal Therapy Agents ondansetron 4 mg disintegrat ing tablet 2022-09 2- 00:00: 00 03-25 23:59 :00 No [id number] 1 tablet 4 TIMES A WEEK 1 tablet 4 TIMES A WEEK (route: oral) Med Classific ation: Gastroint estinal Therapy Agents Osteo Bi-Flex 250 mg-200 mg tablet 09-24 00:00: 00 03-25 23:59 :00 No [id number] 1 tablet DAILY 1 tablet DAILY (route: oral) Med Classific ation: Alternati ve Therapy oxycodone 10 mg tablet 2022-09 2- 00:00: 00 03-25 23:59 :00 No [id number] 5 mg 4 TIMES A WEEK 5 mg 4 TIMES A WEEK (route: oral) Med Classific ation: Analgesic , Anti-infl ammatory or Antipyret ic Probiotic Acidophilus 250 million cell capsule 09-24 00:00: 00 03-25 23:59 :00 No [id number] 1 capsule DAILY 1 capsule DAILY (route: oral) Med Classific ation: Gastroint estinal Therapy Agents rosuvastati n 20 mg tablet 09-24 00:00: 00 03-25 23:59 :00 No [id number] 1 tablet DAILY 1 tablet DAILY (route: oral) Med Classific ation: Cardiovas cular Therapy Agents Vitamin D3 10 mcg (400 unit) capsule 09-24 00:00: 00 03-25 23:59 :00 No [id number] 1 capsule DAILY 1 capsule DAILY (route: [...] REASON(S) SKILLS OF A THERAPIST ARE INDICATED: 611830 PHYSICAL THERAPY EVALUATION COMPLETED. PATIENT IS A [...] PATIENT ABLE TO DRESS UE LE USING MASTER GLAZIER HOWEVER WITH DIFFICULTY. DYNAMIC STAND BALANCE TUG SCORE IS 18 SECONDS INDICATING A FALL RISK. PATIENT IS CURRENTLY HOMEBOUND AND REQUIRES PHYSICAL ASSIST TO LEAVE HOME FOR MEDICAL APPOINTMENTS. PATIENT IS AGREEABLE TO PHYSICAL THERAPY INTERVENTION 2X A WEEK. [code = SUMMARY OF THERAPY EVAL/ASSESSMENT FINDINGS AND REASON(S) SKILLS OF A THERAPIST ARE INDICATED: 711812 PHYSICAL THERAPY EVALUATION COMPLETED. PATIENT IS A [...] PATIENT ABLE TO DRESS UE LE USING MASTER GLAZIER HOWEVER WITH DIFFICULTY. DYNAMIC STAND BALANCE TUG [...] OF UE FUNYION, GAIT AND TRANSFERS BY [id number] Goal Provider Goal - PATIENT/CAREGIVER WILL DEMONSTRATE IMPROVED GAIT TECHNIQUES TO MINIMIZE RISK OF INJURY AND INCREASE FUNCTION OF GAIT ON EVEN AND UNEVEN SURFACES FOR COMMUNITY DISTANCES BY [id number] Goal Provider Goal - PATIENT/CAREGIVER WILL DEMONSTRATE/VERBALIZE UNDERSTANDING OF RECOMMENDATIONS TO INCREASE SAFETY IN THE HOME AND FALL PREVENTION TO IMPROVE FUNCTION OF TRANSFERS AND GAIT BY [id number] Goal Provider Goal - INCREASED PAIN OR INEFFECTIVE PAIN CONTROL MEASURES WILL BE IDENTIFIED AND PROMPTLY REPORTED TO THE PHYSICIAN. PATIENT/CAREGIVER WILL DEMONSTRATE EFFECTIVE PAIN MANAGEMENT TO IMPROVE FUNCTION OF BILATERAL SHOULDER PAIN TO 0-2/10 BY [id number] Goal Provider Goal - Reason for Visit INDEPENDENT IN THE HOME Encounters Start Date/Time End Date/Time Encounter Type Admission Type Attending [facility] Care [facility] Care Department Encounter ID Discharge Date Discharge Status Discharge Condition Discharge Reason Percent Goals Met 2023-10-01 00:00:00 2023-10-29 00:00:00 Outpatient NEW ADMISSION BERNARDINO RICE [facility] [id number] 2023-10-29 00:00:00 DISCHARGE TO HOME OR SELF CARE INDEPENDEN T IN THE HOME MOVED OUT OF SERVICE AREA 44.44
--- OUTSIDE RECORDS SUMMARY | 2024-09-22 12:21 | XMS_ITS | Clinical Summary ---
Author Organization Unknown Care Team Providers Care Medicare Nurse Name Role Phone SABRA MAZA, SAMMY Unavailable Unavailable DWAYNE PT, BERNARDINO Unavailable Unavailable Payers Payer Name Policy Type Policy Number Effective Date Expira tion Date [place]ICARE - [place] [id number] [facility] [id number] Problems Condition Name Condition Details Condition Category [...] 2 00:00: 00 03-25 23:59 :00 No [id number] Per instruc tions TWICE A DAY Per instructio ns TWICE A DAY (route: oral) Med Classific ation: Gastroint estinal Therapy Agents ondansetron 4 mg disintegrat ing tablet 2022-09 2- 00:00: 00 03-25 23:59 :00 No [id number] 1 tablet 4 TIMES A WEEK 1 tablet 4 TIMES A WEEK (route: oral) Med Classific ation: Gastroint estinal Therapy Agents Osteo Bi-Flex 250 mg-200 mg tablet 09-24 00:00: 00 03-25 23:59 :00 No [id number] 1 tablet DAILY 1 tablet DAILY (route: oral) Med Classific ation: Alternati ve Therapy oxycodone 10 mg tablet 2022-09 2- 00:00: 00 03-25 23:59 :00 No [id number] 5 mg 4 TIMES A WEEK 5 mg 4 TIMES A WEEK (route: oral) Med Classific ation: Analgesic , Anti-infl ammatory or Antipyret ic Probiotic Acidophilus 250 million cell capsule 09-24 00:00: 00 03-25 23:59 :00 No [id number] 1 capsule DAILY 1 capsule DAILY (route: oral) Med Classific ation: Gastroint estinal Therapy Agents rosuvastati n 20 mg tablet 09-24 00:00: 00 03-25 23:59 :00 No [id number] 1 tablet DAILY 1 tablet DAILY (route: oral) Med Classific ation: Cardiovas cular Therapy Agents Vitamin D3 10 mcg (400 unit) capsule 09-24 00:00: 00 03-25 23:59 :00 No [id number] 1 capsule DAILY 1 capsule DAILY (route: [...] REASON(S) SKILLS OF A THERAPIST ARE INDICATED: 027551 PHYSICAL THERAPY EVALUATION COMPLETED. PATIENT IS A [...] PATIENT ABLE TO DRESS UE LE USING DENTAL SCHEDULING COORDINATOR HOWEVER WITH DIFFICULTY. DYNAMIC STAND BALANCE TUG SCORE IS 18 SECONDS INDICATING A FALL RISK. PATIENT IS CURRENTLY HOMEBOUND AND REQUIRES PHYSICAL ASSIST TO LEAVE HOME FOR MEDICAL APPOINTMENTS. PATIENT IS AGREEABLE TO PHYSICAL THERAPY INTERVENTION 2X A WEEK. [code = SUMMARY OF THERAPY EVAL/ASSESSMENT FINDINGS AND REASON(S) SKILLS OF A THERAPIST ARE INDICATED: 814023 PHYSICAL THERAPY EVALUATION COMPLETED. PATIENT IS A [...] PATIENT ABLE TO DRESS UE LE USING DENTAL SCHEDULING COORDINATOR HOWEVER WITH DIFFICULTY. DYNAMIC STAND BALANCE TUG [...] OF UE FUNYION, GAIT AND TRANSFERS BY [id number] Goal Provider Goal - PATIENT/CAREGIVER WILL DEMONSTRATE IMPROVED GAIT TECHNIQUES TO MINIMIZE RISK OF INJURY AND INCREASE FUNCTION OF GAIT ON EVEN AND UNEVEN SURFACES FOR COMMUNITY DISTANCES BY [id number] Goal Provider Goal - PATIENT/CAREGIVER WILL DEMONSTRATE/VERBALIZE UNDERSTANDING OF RECOMMENDATIONS TO INCREASE SAFETY IN THE HOME AND FALL PREVENTION TO IMPROVE FUNCTION OF TRANSFERS AND GAIT BY [id number] Goal Provider Goal - INCREASED PAIN OR INEFFECTIVE PAIN CONTROL MEASURES WILL BE IDENTIFIED AND PROMPTLY REPORTED TO THE PHYSICIAN. PATIENT/CAREGIVER WILL DEMONSTRATE EFFECTIVE PAIN MANAGEMENT TO IMPROVE FUNCTION OF BILATERAL SHOULDER PAIN TO 0-2/10 BY [id number] Goal Provider Goal - Reason for Visit INDEPENDENT IN THE HOME Encounters Start Date/Time End Date/Time Encounter Type Admission Type Attending [facility] Care Department Encounter ID Discharge Date Discharge Status Discharge Condition Discharge Reason Percent Goals Met 2023-10-01 00:00:00 2023-10-29 00:00:00 Outpatient NEW ADMISSION B[facility] [id number] 2023-10-29 00:00:00 DISCHARGE TO HOME OR SELF CARE INDEPENDEN T IN THE HOME MOVED OUT OF SERVICE AREA 44.44
== END 2024-09-22 12:54 | disposition home or self-care (01) ==
PROVIDERS: PCP Internal Medicine; Visit Provider Student in an Organized Health Care Education/Training Program
DX: E04.1 Nontoxic single thyroid nodule (principal); E05.90 Thyrotoxicosis, unspecified without thyrotoxic crisis or storm
CPT/HCPCS: 99214

== ENCOUNTER → 2024-09-22 12:19 | Outpatient (BNVA) | payer MEDICARE, BC, SELFPAY | PROVIDERS: PCP Internal Medicine; Visit Provider Student in an Organized Health Care Education/Training Program | DX: E04.1 Nontoxic single thyroid nodule (principal); E05.90 Thyrotoxicosis, unspecified without thyrotoxic crisis or storm | CPT/HCPCS: 99212 ==

== ENCOUNTER → 2024-10-15 10:02 | Outpatient (BNV) | payer MEDICARE, BC, SELFPAY | PROVIDERS: PCP Internal Medicine; Visit Provider Student in an Organized Health Care Education/Training Program | DX: E04.1 Nontoxic single thyroid nodule (principal) | CPT/HCPCS: 10005 ==

== ENCOUNTER 2024-10-22 14:05 | Outpatient (AMB) | payer MEDICARE, BC, SELFPAY ==
[2024-10-22 14:06] VITALS: BP 134/90; PULSE 90; BMI 28.9
--- NOTE | 2024-10-22 14:06 | MHC.OFFVIS ---
Vital Signs 10/22/24 14:06 Height 5 ft 3 in Weight 163 lb 2.273 oz BMI 28.9 BP 134/90 H Blood Pressure Location Lt brachial Position Sitting Pulse 90 Pulse Source Pulse Oximeter Intake Visit Reasons: Biopsy f/u Intake Note: Patient present today for biopsy results. Seismology Technical Officer Required: No Accompanied by: Self / Same As Patient Allergies No Known Allergies [No Known Allergies*] Allergy (Verified 10/22/24 14:11) Medication List - Last Reconciled 10/22/24 by Nadya Stewart MD acetaminophen 650 mg (2 x 325 mg) PO Q6H PRN 30 days aspirin 81 mg PO BID 42 days cetirizine (Zyrtec) 10 mg PO DAILY PRN cholecalciferol (vitamin D3) (Vitamin D3) 25 mcg PO DAILY glucosamine-chondroitin 250-200 mg (Osteo Bi-Flex) 1 tab PO DAILY lactobacillus combination no.4 (Probiotic) 3,000 mmu cells PO DAILY rosuvastatin 20 mg PO DAILY HPI Comments Details: 83 YO F with who is seen for follow up of subclinical hyperthyroidism and right-sided thyroid nodule . HPI She was noted to have a TSH level of 0.35, with normal free T4 0.97 in February 2024. TR AB. Antibody levels was negative. Subsequently labs repeated in June 2024 showed TSH normalized at 0.38 though still at the lower limit of normal, free T4 normal at 0.88 and normal free T3 of 3.4. She had a thyroid uptake and scan May 2024 which showed asymmetrically increased uptake in the right lobe with decreased uptake in the left lobe. In addition to that she was also noted to have decreased uptake in the right upper lobe concerning for cold nodule. 09/18/2024 again showed absolutely normal thyroid function with normal TSH, normal free T4 and total T3. TSH is just at the borderline of normal lower range, however still everything else is normal. ultrasound of her thyroid 07/29/2024, I reviewed the images, which shows an atrophic left side, shows a large 6 cm right-sided thyroid nodule which is solid, isoechoic, well-circumscribed , no punctate echogenic foci. This is a TR 3 nodule. Per EDA guidelines this is a low suspicion nodule with a 5-10% chance of malignancy. However given size meets criteria for FNA. 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 Currently denies any dysphagia or hoarseness of voice. Denies sensation of swelling in the neck or difficulty breathing while lying flat. Denies any tenderness in the neck. Denies any palpitations, tremors, weight loss, frequent bowel movements. Denies any ocular complaints, blurred or double vision. Denies hair loss, dry skin, heat or cold intolerance, weight gain, confusion. Denies any history of head or neck irradiation. Denies any family history of thyroid cancer Half sister has some thyroid problem . No use of kelp or seaweed , stopped biotin use before doing labs. Interval history 10/15/2024 underwent FNA biopsy of the right-sided 6 cm nodule with benign cytology, [place] category 2. Physical exam General: sitting comfortably in no acute distress HEENT: normocephalic/atraumatic, moist oral mucosa Neck: supple, palpable 3-4 cm right-sided thyroid nodule , no dorsocervical or supraclavicular fat pads Cardiac: normal heart sounds Pulm: normal breath sounds B/L, no added breath sounds Abd: not distended, no tenderness 06/24/24 13:54 TSH 0.38 Free T4 0.88 Free T3 3.4 Laboratory Tests 06/24/24 09/18/24 13:54 10:42 TSH 0.38 0.37 Free T4 0.88 0.96 Free T3 3.4 Total T3 117 PFSH Medical History (Updated 09/22/24 @ 12:48 by Nadya Stewart MD) Right thyroid nodule Subclinical hyperthyroidism Low TSH level History of MRSA infection Osteoarthritis Left humeral fracture Breast cancer Hyperlipemia Surgical History History of shoulder replacement H/O colonoscopy History of lumpectomy of left breast Hx of tonsillectomy 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) History of right knee joint replacement Family History Mother No known health problems Father Heart problem High cholesterol Social History Household Members: None Housing: House Are you a primary day care teacher to a significant other at home: No Do you presently have visiting nurse or other home services: No Patient Tobacco Use Status: Never used Tobacco service: No Current occupational status: retired Physical Exam Vital Signs: Last Vital Signs Pulse 90 10/22/24 14:06 BP 134/90 H 10/22/24 14:06 BMI result Body Mass Index 28.9 Assessment & Plan Assessment & Plan (1) Subclinical hyperthyroidism: Code(s): E05.90 - Thyrotoxicosis, unspecified without thyrotoxic crisis or storm Category: Medical Plan: 83 YO F with who is seen for follow up of low TSH of 0.35, with normal free T4 0.97 in February 2024. Consistent with subclinical hyperthyroidism. TR AB. Antibody levels was negative. .She had a thyroid uptake and scan May 2024 which showed asymmetrically increased uptake in the right lobe with decreased uptake in the left lobe. In addition to that she was also noted to have decreased uptake in the right upper lobe concerning for cold nodule. labs repeated in June 2024 showed TSH normalized at 0.38 though still at the lower limit of normal, free T4 normal at 0.88 and normal free T3 of 3.4. 09/18/2024 again showed absolutely normal thyroid function with normal TSH, normal free T4 and total T3. TSH is just at the borderline of normal lower range, however still everything else is normal. ultrasound of her thyroid 07/29/2024, showed an atrophic left side, shows a large 6 cm right-sided thyroid nodule which is solid, isoechoic, well-circumscribed , no punctate echogenic foci. This is a TR 3 nodule. Per EDA guidelines this is a low suspicion nodule with a 5-10% chance of malignancy. However given size meets criteria for FNA. 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 10/15/2024 underwent FNA biopsy of the right-sided 6 cm nodule with benign cytology, [place] category 2. I explained to the patient that benign results main less than 3% chance of malignancy. However I also discussed with her that given this nodule is greater than 4 cm in size some experts suggest lobectomy for these nodules given in accuracy of biopsies to detect malignancy given large size. However given her age it is also reasonable to just wait and watch this nodule with repeat ultrasounds. Patient verbalized understanding of the risk and agreed that she would like to watch this nodule over time with repeat ultrasound especially given that she has no compressive symptoms. Given her age she will also meet treatment criteria for subclinical hyperthyroidism, however her most recent labs August 2024 are normal, hence we will repeat a set of blood work in 6 months prior to follow up. If these repeat labs are also normal, she can have annual thyroid function testing done. I also counseled her about symptoms of hyperthyroidism and to do blood work sooner if those happen. Plan: -ordered TSH, free T4 and total T3 to be done in 6 months prior to follow up. We will plan to repeat thyroid ultrasound in August 2025 which we can order at her follow up visit in summer 2024 (2) Right thyroid nodule: Code(s): E04.1 - Nontoxic single thyroid nodule Category: Medical Plan: See above Plan See above Orders: Orders Thyroid Stimulating Hormone 02/23/25 E04.1 - Nontoxic single thyroid nodule, E05.90 - Thyrotoxicosis, unspecified without thyrotoxic crisis or storm Triiodothyronine T3 Total 02/23/25 E04.1 - Nontoxic single thyroid nodule, E05.90 - Thyrotoxicosis, unspecified without thyrotoxic crisis or storm Free T4 (Free Thyroxine) 02/23/25 E04.1 - Nontoxic single thyroid nodule, E05.90 - Thyrotoxicosis, unspecified without thyrotoxic crisis or storm Coding Level of Care Code Est Pt Level 3 (70291) Diagnoses Subclinical hyperthyroidism E05.90 Right thyroid nodule E04.1
--- OUTSIDE RECORDS SUMMARY | 2024-10-22 16:23 | XMS_ITS | Patient Health Record ---
Author Organization [facility] Address [address] [place] [address] Care Team Providers Care Blackjack Pit Boss Name Role Phone Taylor Grant Unavailable [phone] Reason For Referral No Information Medications Medication SIG (Take, Route, Fr equency, Duration) Notes Start Date End Date Status Aspirin EC 81MG 1 ORAL daily for -3 [facility] 11/18/2013 Active Co Q-10 100MG 1 ORAL daily for -3 [facility] 11/18/2013 Active miSOPROStol 200MCG 2 ORAL NIGHT BEFORE PROCEDURE for -3 [facility] 11/18/2013 Active Vitamin D3 1000 IU ORAL daily for -3 [facility] 11/18/2013 Active Zetia 10MG 1 ORAL daily for -3 [facility] 11/18/2013 Active Problems Problem Type SNOMED Code ICD Code Onset Dates Problem Status W/U Status Risk Notes Problem Malignant neoplasm of female breast (314843318) Malignant neoplasm of breast (female), unspecified site (174.9) Active confirmed Major Problem Postmenopausal bleeding (24511020) Postmenopausal bleeding (627.1) Active confirmed Major Problem Family history of malignant neoplasm of breast (643467864) Family history of malignant neoplasm of breast (V16.3) Active confirmed Major Plan Of Treatment No Information Insurance Providers Payer Name Payer Address Payer Phone Subscriber Number Group Number Insured Name Patient Relationship to Insured Coverage Start Date Coverage End Date MEDICARE [address] [place] [id number] ANTELMO GALVEZ Self - patient is the insured 4 [employer] [place] [address] [place] [address] [id number] ANTELMO GALVEZ Self - patient is the insured
--- OUTSIDE RECORDS SUMMARY | 2024-10-22 16:23 | XMS_ITS | Clinical Summary ---
Author Organization [facility] Address [address] [place] [address] Care Team Providers Care Customer Experience Associate Name Role Phone Unavailable Primary Care Provider Unavailabl e Social History Tobacco Use Types Packs/Day Years Used Date Smoking Tobacco: Never Assessed Sex and Gender Information Value Date Recorded Sex Assigned at Not on file Gender Identity Not on file Sexual Orientation Not on file Plan of Treatment Health Maintenance Due Date Last Done Comments DTaP,Tdap,and Td Vaccines (1 - Tdap) 1957 Zoster Vaccines (1 of 2) 1988 Pneumococcal Vaccine: 65+ Ye ars (1 of 1 - PCV) 2003 RSV Immunization Patients 60 + Years Old (1 - 1-dose 75+ series) 2013 Depression Screening 08/26/2022 Falls Risk Assessment 08/26/2022 Osteoporosis Screening (Bone Density Screening) 08/26/2022 Social Influencers of Health Screening 08/26/2022 COVID-19 Vaccine (2023-2 5 season) 2024 Influenza Vaccine (#1) 2024 HIB Vaccines Aged Out No longer eligi ble based on patient's age to complete this topic HPV Vaccines Aged Out No longer eligi ble based on patient's age to complete this topic Hepatitis A Vaccines Aged Out No long er eligible based on patient's age to complete this topic Hepatitis B Vaccines Aged Out No long er eligible based on patient's age to complete this topic IPV Vaccines Aged Out No longer eligi ble based on patient's age to complete this topic MMR Vaccines Aged Out No longer eligi ble based on patient's age to complete this topic Meningococcal ACWY Vaccine Aged Out N o longer eligible based on patient's age to complete this topic RSV Immunization Patients Un beverly 20 months Aged Out No longer eligible b ased on patient's age to complete this topic Varicella Vaccines Aged Out No longer eligible based on patient's age to complete this topic
== END 2024-10-22 14:25 | disposition home or self-care (01) ==
PROVIDERS: PCP Internal Medicine; Visit Provider Student in an Organized Health Care Education/Training Program
DX: E05.90 Thyrotoxicosis, unspecified without thyrotoxic crisis or storm (principal); E04.1 Nontoxic single thyroid nodule
CPT/HCPCS: 99213

== ENCOUNTER → 2024-10-22 14:05 | Outpatient (BNVA) | payer MEDICARE, BC, SELFPAY | PROVIDERS: PCP Internal Medicine; Visit Provider Student in an Organized Health Care Education/Training Program | DX: E04.1 Nontoxic single thyroid nodule (principal); E05.90 Thyrotoxicosis, unspecified without thyrotoxic crisis or storm | CPT/HCPCS: 99212 ==

== ENCOUNTER 2025-05-13 10:43 | Outpatient (REF) | payer MEDICARE, BC, SELFPAY ==
--- OUTSIDE RECORDS SUMMARY | 2025-05-13 12:05 | XMS_ITS | Clinical Summary ---
Author Organization [address] Address [address] [place] [address] Phone Care Team Providers Care Electrical Mechanic Name Role Phone Simeon Solitario DO Primary Care Provider [phone] Social History Tobacco Use Types Packs/Day Years Used Date Smoking Tobacco: Never Assessed Comments Unknown Sex and Gender Information Value Date Recorded Sex Assigned at Not on file Legal Sex Female 5:14 PM EST Gender Identity Not on file Sexual Orientation Not on file Plan of Treatment Health Maintenance Due Date Last Done Comments DTaP,Tdap,and Td Vaccines (1 - Tdap) 1957 Pneumococcal Vaccine: 50+ Years (1 of 2 - PCV) 1957 Zoster Vaccines (1 of 2) 1957 RSV Immunization Adult Patients (1 - 1-dose 75+ series) 2013 COVID-19 Vaccine (3 - Pfizer risk series) 12/27/2020 11/29/2020, 11/08/2020 Falls Risk Assessment 08/26/2022 Medicare Annual Wellness Visit 08/26/2022 Osteoporosis Screening (Bone Density Screening) 08/26/2022 Social Influencers of Health Screening 08/26/2022 Depression Screening 09/24/2024 Influenza Vaccine (#1) 2025 08/16/2022 Cholesterol Screening (Lipid Panel) 01/22/2030 01/22/2025 HIB Vaccines Aged Out No longer eligi [...] patient's age to complete this topic Meningococcal B Vaccine Aged Out No l onger eligible based on patient's age to complete this topic RSV Immunization Patients Under 20 months Aged Out No longer eligible b ased on patient's age to complete this topic Varicella Vaccines Aged Out No longer eligible based on patient's age to complete this topic Procedures Procedure Name Priority Date/Time Associated Diagnosis Comments LIPID PANEL WITH REFLEX TO DIRECT LDL Routine 01/22/2025 11:29 AM EDT Hyperlipemia from Last 3 Months or Most Recently Relevant to Health Maintenance Results * (ABNORMAL) Lipid panel with reflex to direct LDL (01/22/2025 11:29 AM EDT) Cholesterol 214(H) 0 - 200 mg/dL LAB [facility] Trig[facility] 150 0 - 150 mg/dL LAB CHEMISTRY METHOD 01/22/2025 4:47 PM [facility] HDL 81 >=40 mg/dL LAB CHEMISTRY METHOD 01/22/2025 4:47 PM [facility] LDL Calculated 103(H) 0 - 100 mg/dL LAB CHEMISTRY METHOD 01/22/2025 4:47 PM [facility] VLDL Cholesterol Jah 30 mg/dL LAB CHEMISTRY METHOD 01/22/2025 4:47 PM [facility] Non HDL Chol. (LDL+VLDL) 133 <145 mg/dL LAB CHEMISTRY METHOD 01/22/2025 4:47 PM [facility] Chol/HDL Ratio 2.6 0.0 - 4.4 LAB CHEMISTRY METHOD 01/22/2025 4:47 PM [facility] Blood Venous blood specimen / Unknown Venipuncture / Unknown 01/22/2025 11:29 AM EDT 01/22/2025 11:30 AM EDT us Padma Walker INSURANCE MARKETING REP LAB BLOOD ORDERABLES Fi nal Result [facility] [address] [place] [address], [place] [phone] from Last 3 Months or Most Recently Relevant to Health Maintenance Insurance [facility] MEDICARE Care Teams Electrical Mechanic Relationship Specialty Start Date End Date Simeon Solitario DO [address] [place] [phone] PCP - General Internal Medicine 01/22/25
--- OUTSIDE RECORDS SUMMARY | 2025-05-13 12:05 | XMS_ITS | Clinical Summary ---
Author Organization [facility] Address [address] [place] [address] Phone Care Team Providers Care Admissions Recruiter Name Role Phone Padma Walker PROSTHETIC AIDES TEACHER Primary Care Provider Allergies No known active allergies Medications morphine (MSIR) 15 MG tablet Take 0.5 tablets (7.5 mg total) by mouth every 4 (four) hours as needed for pain (specific location in comments). Partial fill ok 10 tablet 05/09/2023 Active Social History Tobacco Use Types Packs/Day Years Used Date Smoking Tobacco: Never Assessed Education Answer Date Recorded Are you interested in more education? Not on barak e 05/09/2023 Are you concerned about learning? Not on file 05/09/2023 No 05/09/2023 No 05/09/2023 Digital Access Answer Date Recorded No 05/09/2023 No 05/09/2023 Reliable internet access at home? Not on file 05/09/2023 Device with a working camera? Not on file Intimate Partner Violence Answer Date R ecorded Are you denied basic needs s uch as food, clothing, or medical care? No 05/09/2023 In the past 12 months have y ou been in a relationship with a person who hurts, threatens, or tries to control you? No 05/09/2023 Are you denied basic needs s uch as food, clothing, or medical care? No 05/09/2023 In the past 12 months have y ou been in a relationship with a person who hurts, threatens, or tries to control you? No 05/09/2023 Comments Unknown Sex and Gender Information Value Date Recorded Sex Assigned at Not on file Legal Sex Female 12:49 PM EDT Gender Identity Not on file Sexual Orientation Not on file Last Filed Vital Signs Vital Sign Reading Time Taken Comments Blood Pressure 123/64 05/09/2023 3:24 PM EDT Pulse 89 05/09/2023 3:24 PM EDT Temperature 36.1 C (97 F) 05/09/2023 1:14 PM EDT Respiratory Rate 18 05/09/2023 4:22 PM EDT Oxygen Saturation 96% 05/09/2023 3:24 PM EDT Inhaled Oxygen Concentration - - Weight 68 kg (150 lb) 05/09/2023 1:14 PM EDT Height 160 cm (5' 3 ) 05/09/2023 1:14 PM EDT Body Mass Index 26.57 05/09/2023 1:14 PM EDT Plan of Treatment Health Maintenance Due Date Last Done Comments Adult Td,Tdap Booster 1938 DEPRESSION SCREENING 1950 PNEUMOCOCCAL VACCINES (50+ y ears) (1 of 1 - PCV) 1988 ZOSTER VACCINES (1 of 2) 1988 OSTEOPOROSIS SCREENING INITI AL (ONE-TIME) 2003 RSV VACCINE (1 - 1-dose 75+ series) 2013 COVID-19 VACCINE (2023-2 5 season) 2024 HEPATITIS A VACCINES Aged Out No long er eligible based on patient's age to complete this topic HIB VACCINES Aged Out No longer eligi ble based on patient's age to complete this topic MENINGOCOCCAL VACCINES (ACWY) Aged Out No longer eligible based on patient's age to complete this topic MENINGOCOCCAL VACCINES (B) Aged Out N o longer eligible based on patient's age to complete this topic Medical Devices Not on file Insurance MEDICARE PART A & B [facility] MEDICARE PART A & B [facility] MEDICARE PART A & B [facility] MEDICARE PART A & B [facility] MEDICARE PART A & [place] [address] [place] [address] MEDICARE PART A & B [facility] Care Teams Admissions Recruiter Relationship Specialty Start Date End Date Padma Walker NP [address] [place] [phone] PCP - General Nurse Practitioner 05/09/23 Additional Source Comments The information contained in this document represents components of the legal health record. It is not the complete legal health record.[facility]
[2025-05-13 16:14] LABS: Free T4 (Free Thyroxine) 0.98 ng/dL (0.71-1.85); Thyroid Stimulating Hormone 0.21 uIU/mL (0.32-4.0)
== END 2025-05-13 10:44 | disposition home or self-care (01) ==
LOC: HO.HMGCLDS 10:43
PROVIDERS: Visit Provider Student in an Organized Health Care Education/Training Program
DX: E05.90 Thyrotoxicosis, unspecified without thyrotoxic crisis or storm (principal); E04.1 Nontoxic single thyroid nodule
CPT/HCPCS: 36415; 84439; 84443; 84480

== ENCOUNTER 2025-05-19 13:26 | Outpatient (AMB) | payer MEDICARE, BC, SELFPAY ==
[2025-05-19 13:30] VITALS: BP 142/68; PULSE 92; O2SAT 96; BMI 28.7
--- NOTE | 2025-05-19 13:30 | A.OFFVIS_ITS ---
Vital Signs 3 05/19/25 13:30 Height 5 ft 3 in Weight 161 lb 13.109 oz BMI 28.7 BP 142/68 H Blood Pressure Location Lt brachial Position Sitting Pulse 92 Pulse Source Pulse Oximeter Pulse Oximetry (%) 96 Oxygen Delivery Method Room Air Intake Visit Reasons: Right thyroid nodule Intake Note: Patient present today for Thyroid office visit. Application Developer Required: No Accompanied by: Self / Same As Patient Allergies No Known Allergies (No Known Allergies*) Allergy (Verified 05/19/25 13:33) Medication List - Last Reconciled 05/19/25 by Nadya Stewart MD acetaminophen 650 mg (2 x 325 mg) PO Q6H PRN 30 days cholecalciferol (vitamin D3) (Vitamin D3) 25 mcg PO DAILY glucosamine-chondroitin 250-200 mg (Osteo Bi-Flex) 1 tab PO DAILY lactobacillus combination no.4 (Probiotic) 3,000 mmu cells PO DAILY rosuvastatin 20 mg PO DAILY HPI Comments Details: 83 YO F with who is seen for follow up of subclinical hyperthyroidism and right-sided thyroid nodule . HPI She was noted to have a TSH level of 0.35, with normal free T4 0.97 in February 2024. TR AB. Antibody levels was negative. Subsequently labs repeated in June 2024 showed TSH normalized at 0.38 though still at the lower limit of normal, free T4 normal at 0.88 and normal free T3 of 3.4. She had a thyroid uptake and scan May 2024 which showed asymmetrically increased uptake in the right lobe with decreased uptake in the left lobe. In addition to that she was also noted to have decreased uptake in the right upper lobe concerning for cold nodule. 09/18/2024 again showed absolutely normal thyroid function with normal TSH, normal free T4 and total T3. TSH is just at the borderline of normal lower range, however still everything else is normal. ultrasound of her thyroid 07/29/2024, I reviewed the images, which shows an atrophic left side, shows a large 6 cm right-sided thyroid nodule which is solid, isoechoic, well-circumscribed , no punctate echogenic foci. This is a TR 3 nodule. Per EDA guidelines this is a low suspicion nodule with a 5-10% chance of malignancy. However given size meets criteria for FNA. 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 Currently denies any dysphagia or hoarseness of voice. Denies sensation of swelling in the neck or difficulty breathing while lying flat. Denies any tenderness in the neck. Denies any palpitations, tremors, weight loss, frequent bowel movements. Denies any ocular complaints, blurred or double vision. Denies hair loss, dry skin, heat or cold intolerance, weight gain, confusion. Denies any history of head or neck irradiation. Denies any family history of thyroid cancer Half sister has some thyroid problem . No use of kelp or seaweed , stopped biotin use before doing labs. 10/15/2024 underwent FNA biopsy of the right-sided 6 cm nodule with benign cytology, [place] category 2. Interval history 05/13/2025: TSH again low at 0.21, free T4 normal at 0.98, total T3 normal at 132 She does have some overall anxiety but that has been there since her has been some years ago, denies any worsening of anxiety. No palpitations. No tremors. No fractures. Physical exam General: sitting comfortably in no acute distress HEENT: normocephalic/atraumatic, moist oral mucosa Neck: supple, palpable 3-4 cm right-sided thyroid nodule , no dorsocervical or supraclavicular fat pads Cardiac: normal heart sounds Pulm: normal breath sounds B/L, no added breath sounds Abd: not distended, no tenderness 06/24/24 13:54 TSH 0.38 Free T4 0.88 Free T3 3.4 Laboratory Tests 06/24/24 09/18/24 13:54 10:42 TSH 0.38 0.37 Free T4 0.88 0.96 Free T3 3.4 Total T3 117 Laboratory Tests 05/13/25 10:48 TSH 0.21 L Free T4 0.98 Total T3 132 PFSH Medical History (Updated 09/22/24 @ 12:48 by Nadya Stewart MD) Right thyroid nodule Subclinical hyperthyroidism Low TSH level History of MRSA infection Osteoarthritis Left humeral fracture Breast cancer Hyperlipemia Surgical History History of shoulder replacement H/O colonoscopy History of lumpectomy of left breast Hx of tonsillectomy 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) History of right knee joint replacement Family History Mother No known health problems Father Heart problem High cholesterol Social History Household Members: None Housing: House Are you a primary career placement services counselor to a significant other at home: No Do you presently have visiting nurse or other home services: No Patient Tobacco Use Status: Never used Tobacco service: No Current occupational status: retired Physical Exam Vital Signs: Last Vital Signs Pulse 92 05/19/25 13:30 BP 142/68 H 05/19/25 13:30 Pulse Ox 96 05/19/25 13:30 Oxygen Delivery Method Room Air 05/19/25 13:30 BMI result Body Mass Index 28.7 Assessment & Plan Assessment & Plan (1) Subclinical hyperthyroidism: Code(s): E05.90 - Thyrotoxicosis, unspecified without thyrotoxic crisis or storm Category: Medical Plan: 83 YO F with who is seen for follow up of low TSH of 0.35, with normal free T4 0.97 in February 2024. Consistent with subclinical hyperthyroidism. TR AB. Antibody levels was negative. .She had a thyroid uptake and scan May 2024 which showed asymmetrically increased uptake in the right lobe with decreased uptake in the left lobe. In addition to that she was also noted to have decreased uptake in the right upper lobe concerning for cold nodule. labs repeated in June 2024 showed TSH normalized at 0.38 though still at the lower limit of normal, free T4 normal at 0.88 and normal free T3 of 3.4. 09/18/2024 again showed absolutely normal thyroid function with normal TSH, normal free T4 and total T3. TSH is just at the borderline of normal lower range, however still everything else is normal. ultrasound of her thyroid 07/29/2024, showed an atrophic left side, shows a large 6 cm right-sided thyroid nodule which is solid, isoechoic, well- circumscribed , no punctate echogenic foci. This is a TR 3 nodule. Per EDA guidelines this is a low suspicion nodule with a 5-10% chance of malignancy. However given size meets criteria for FNA. 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 10/15/2024 underwent FNA biopsy of the right-sided 6 cm nodule with benign cytology, [place] category 2. I explained to the patient that benign results main less than 3% chance of malignancy. However I also discussed with her that given this nodule is greater than 4 cm in size some experts suggest lobectomy for these nodules given in accuracy of biopsies to detect malignancy given large size. However given her age it is also reasonable to just wait and watch this nodule with repeat ultrasounds. Patient verbalized understanding of the risk and agreed that she would like to watch this nodule over time with repeat ultrasound especially given that she has no compressive symptoms. Given her age we have to be careful about subclinical hyperthyroidism as she would count as high-risk, however her her TSH is greater than 0.1 which is reassuring. Most recent labs done in April 2025 showed TSH again low at 0.21, free T4 normal at 0.98, total T3 normal at 132 At this point we will plan to see her back in about 8 months with a repeat ultrasound and labs. Plan: -ordered TSH, free T4 and total T3 to be done in 8 months prior to follow up. -thyroid ultrasound ordered for November 2025 prior to follow up (2) Right thyroid nodule: Code(s): E04.1 - Nontoxic single thyroid nodule Category: Medical Plan: See above Plan See above Orders: Orders 2 Thyroid Stimulating Hormone 12/07/25 E04.1 - Nontoxic single thyroid nodule, E05.90 - Thyrotoxicosis, unspecified without thyrotoxic crisis or storm Free T4 (Free Thyroxine) 12/07/25 E04.1 - Nontoxic single thyroid nodule, E05.90 - Thyrotoxicosis, unspecified without thyrotoxic crisis or storm Triiodothyronine T3 Total 12/07/25 E04.1 - Nontoxic single thyroid nodule, E05.90 - Thyrotoxicosis, unspecified without thyrotoxic crisis or storm US thyroid 12/07/25 E04.1 - Nontoxic single thyroid nodule, E05.90 - Thyrotoxicosis, unspecified without thyrotoxic crisis or storm Patient Instructions: Do ultrasound of the thyroid in mid November 2025, someone will call you to schedule this, please make sure this is done a few weeks prior to your follow up with me end of November 2025 Do thyroid blood work a few days prior to follow up , orders are in Coding Level of Care Code Est Pt Level 3 (54200) Diagnoses Subclinical hyperthyroidism E05.90 Right thyroid nodule E04.1
--- OUTSIDE RECORDS SUMMARY | 2025-05-19 14:22 | XMS_ITS | Clinical Summary ---
Author Organization [address] Address [address] [place] [address] Phone Care Team Providers Care Educational Specialist Name Role Phone Simeon Solitario DO Primary Care Provider [phone] Social History Tobacco Use Types Packs/Day Years [...] mg/dL LAB [facility] Trig[facility] 150 0 - 150 mg/dL LAB CHEMISTRY METHOD 01/22/2025 4:47 PM [facility] HDL 81 >=40 mg/dL LAB CHEMISTRY METHOD 01/22/2025 4:47 PM [facility] LDL Calculated 103(H) 0 - 100 mg/dL LAB CHEMISTRY METHOD 01/22/2025 4:47 PM [facility] VLDL Cholesterol Jah 30 mg/dL LAB CHEMISTRY METHOD 01/22/2025 4:47 PM [facility] Non HDL Chol. (LDL+VLDL) 133 <145 mg/dL LAB CHEMISTRY METHOD 01/22/2025 4:47 PM [facility] Chol/HDL Ratio 2.6 0.0 - 4.4 LAB CHEMISTRY METHOD 01/22/2025 4:47 PM [facility] Blood Venous blood specimen / Unknown Venipuncture / Unknown 01/22/2025 11:29 AM EDT 01/22/2025 11:30 AM EDT us Padma Walker RN OPERATING ROOM LAB BLOOD ORDERABLES Fi nal Result [facility] [address] [place] [address], [place] [phone] from Last 3 Months or Most Recently Relevant to Health Maintenance Insurance [facility] MEDICARE Care Teams Educational Specialist Relationship Specialty Start Date End Date Simeon Solitario DO [address] [place] [phone] PCP - General Internal Medicine 01/22/25
--- OUTSIDE RECORDS SUMMARY | 2025-05-19 14:22 | XMS_ITS | Clinical Summary ---
Author Organization [facility] Address [address] [place] [address] Phone Care Team Providers Care Bottoming Room Supervisor Name Role Phone Padma Walker BACK ROLLER Primary Care Provider Allergies No known active [...] Insurance MEDICARE PART A & B [facility] MEDICARE PART A & B [facility] MEDICARE PART A & B [facility] MEDICARE PART A & B [facility] MEDICARE PART A & [place] [address] [place] [address] MEDICARE PART A & B [facility] Care Teams Bottoming Room Supervisor Relationship Specialty Start Date End Date Padma Walker NP [address] [place] [phone] PCP - General Nurse Practitioner 05/09/23 Additional Source Comments The information contained in this document represents components of the legal health record. It is not the complete legal health record.[facility]
--- OUTSIDE RECORDS SUMMARY | 2025-05-19 14:22 | XMS_ITS | Patient Health Record ---
Author Organization [facility] Address [address] [place] [address] Care Team Providers Care Dynamo Tender Name Role Phone Taylor Grant Unavailable [phone] Reason For Referral No Information Medications Medication SIG (Take, Route, Fr equency, Duration) Notes Start Date End Date Status Aspirin EC 81MG 1 ORAL daily; Duration: -3 [facility]- 014 Active Co Q-10 100MG 1 ORAL daily; Duration: -3 [facility] 4 Active miSOPROStol 200MCG 2 ORAL NIGHT BEFORE PROCEDURE; Duration: -3 [facility]- 11/18/2013 Active Vitamin D3 1000 IU ORAL daily; Duration: -3 [facility]- 2013 Active Zetia 10MG 1 ORAL daily; Duration: -3 [facility]- 11/18/2013 Active Problems Problem Type SNOMED Code ICD Code Onset Dates Problem Status W/U Status Risk Notes Problem Malignant neoplasm of female breast (802244702) Malignant neoplasm of breast (female), unspecified site (174.9) Active confirmed Major Problem Postmenopausal bleeding (13079992) Postmenopausal bleeding (627.1) Active confirmed Major Problem Family history of malignant neoplasm of breast (681707585) Family history of malignant neoplasm of breast (V16.3) Active confirmed Major Plan Of Treatment No Information Insurance Providers Payer Name Payer Address Payer Phone Subscriber Number Group Number Insured Name Patient Relationship to Insured Coverage Start Date Coverage End Date MEDICARE [address] [place] [id number] [phone] [id number] ANTELMO GALVEZ Self - patient is the insured 4 [employer] [place] [address] [place] [address] [id number] ANTELMO GALVEZ Self - patient is the insured
== END 2025-05-19 14:00 | disposition home or self-care (01) ==
LOC: HO.ENCR 13:26
PROVIDERS: PCP Internal Medicine; Visit Provider Student in an Organized Health Care Education/Training Program
DX: E05.90 Thyrotoxicosis, unspecified without thyrotoxic crisis or storm (principal); E04.1 Nontoxic single thyroid nodule
CPT/HCPCS: 99213

== ENCOUNTER → 2025-05-19 13:26 | Outpatient (BNVA) | payer MEDICARE, BC, SELFPAY | PROVIDERS: PCP Internal Medicine; Visit Provider Student in an Organized Health Care Education/Training Program | DX: E04.1 Nontoxic single thyroid nodule (principal); E05.90 Thyrotoxicosis, unspecified without thyrotoxic crisis or storm | CPT/HCPCS: 99212 ==